=== PATIENT | male | born 1940 | race Caucasian/White ===

== ENCOUNTER 2021-01-23 15:55 | Inpatient (IN) | payer MEDICARE ==
[~2021-01-23] VITALS: Ht 180.3 cm; Wt 98.9 kg
[2021-01-23] VITALS (10 sets, daily range): BP systolic 100–128; BP diastolic 55–94
[2021-01-23] MEDS ORDERED: LACTATED RINGERS 1,000 ML IV ONE ×2 (20:20→21:09)
[2021-01-23] MEDS ORDERED: LACTATED RINGERS 1,000 ML IV SCH (20:30)
[2021-01-23] MEDS ORDERED: ONDANSETRON 4 MG/2 ML (SDV) Z0FRAN IVP PRN (20:30)
--- NOTE | 2021-01-23 21:06 | Tele-ICU Progress Note ---
Progress Note 80M with DM, HTN, neuropathy brought to [facility] ED by ambulance after fall with c/o left wrist pain. Also with increased abd pain and left knee pain after a fall last week. 1 week diarrhea, progressively worse after last [address] Abd with significant diverticulosis thoughout the colon with a short segment of mild bowel wall thickening with pericolonic inflammatory changes within the sigmoid colon suggestive of acute diverticulitis. Had been HD stable and transferred to [place] for admission for abdominal sepsis. En route, became hypotensive prompting upgrade to ICU status. BP 120/68, HR 120 after bolus. Initial lactic 2.8, creat 1.8, agap 15, WBC 14.8 sepsis: secondary to diverticulitis. IV abx initiated, cultues pending. Supportive care. BP responded to IVF but may require pressors overnight. CKD vs BRANDON: Baseline unkonwn, montior renal function and UOP. Avoid hypotension, nephrotoxins. DM: insulin sliding scale. Focused Exam Lactate Level 01/23/21 08:36: Lactic Acid Level 1.92 Height, Weight, BMI Height: '" Weight: lbs. oz. kg; BMI Method: ADAIR HODGES MD Jan 23, 2021 21:06
--- NOTE | 2021-01-23 21:15 | Procedure/Intervention Note ---
Procedures/Interventions Lumen: triple Position: internal jugular (R) Anesthesia: local Volume Anesthetic (ccs): 5 Post Position: sutured, good blood return, position confirmed w/ CXR Patient was initially a transfer to the medical surgical unit from [facility]. EMS called in route to report a blood pressure that had dropped from 90 systolic on their arrival to [facility] down to 87 systolic in route. Tachycardia with a heart rate of 130-140. His bed status was changed to ICU. Patient had a positional 20-gauge IV in the left antecubital fossa. Called ICU by maintenance worker house trailer to start central line. Ultrasound-guided right internal jugular central line placed without difficulty x1 attempt. JUWAN MENDES APRN Jan 23, 2021 9:15 pm
[2021-01-23] MEDS: LACTATED RINGERS 1,000 ML IV SCH (21:30)
--- NOTE | 2021-01-23 21:51 | Diagnostic Imaging Report ---
INDICATION: Central line placement Portable chest at 9:16 PM FINDINGS: Right IJ central line tip projects over the right innominate vein. Heart size and pulmonary vascularity are normal. There is left perihilar atelectasis. IMPRESSION: Left perihilar atelectasis. PICC line tip projects over the right innominate vein. Dictated by: Dictated on workstation # [id number]
[2021-01-23] MEDS: morphine INJ 4 MG/ML 1 ML (VIAL/SYRINGE) IVP PRN (23:38)
[2021-01-23] MEDS: metroNIDAZOLE 500MG/100ML IVPB 100 ML IV SCH (23:42)
[2021-01-23] MEDS: cefTRIAXone 2,000 MG in NS (IVPB) 50 ML IV SCH (23:43)
[2021-01-24] VITALS (51 sets, daily range): BP systolic 91–201; BP diastolic 37–160
[2021-01-24] MEDS: morphine INJ 4 MG/ML 1 ML (VIAL/SYRINGE) IVP PRN ×2 (02:21→21:23)
[2021-01-24] MEDS: inSUlin ASPART (NovoLOG) 1 UNIT/0.01 ML (CHARGE PER UNIT) SC SCH ×5 (02:21→23:26)
[2021-01-24 05:45] LABS: BASOPHILS # (AUTO) 0.1 10^3/uL (0.0-0.1); BASOPHILS % (AUTO) 0 % (0-10); EOSINOPHILS # (AUTO) 0.1 10^3/uL (0.0-0.3); EOSINOPHILS % (AUTO) 0 % (0-10); HEMATOCRIT 38 % (40-54); HEMOGLOBIN 11.9 g/dL (13.3-17.7); LYMPHOCYTES # (AUTO) 1.6 10^3/uL (1.0-4.0); LYMPHOCYTES % (AUTO) 5 % (12-44); MEAN CORPUSCULAR HEMOGLOBIN 26 pg (25-34); MEAN CORPUSCULAR HGB CONC 31 g/dL (32-36); MEAN CORPUSCULAR VOLUME 84 fL (80-99); MEAN PLATELET VOLUME 13.1 fL (9.0-12.2); MONOCYTES # (AUTO) 10.5 10^3/uL (0.0-1.0); MONOCYTES % (AUTO) 35 % (0-12); NEUTROPHILS # (AUTO) 17.5 10^3/uL (1.8-7.8); NEUTROPHILS % (AUTO) 57 % (42-75); PLATELET COUNT 72 10^3/uL (130-400)
[2021-01-24 05:47] LABS: WHITE BLOOD COUNT 30.5 10^3/uL (4.3-11.0)
[2021-01-24 06:06] LABS: ALBUMIN 2.9 GM/DL (3.2-4.5); POTASSIUM 4.3 MMOL/L (3.6-5.0)
[2021-01-24 06:07] LABS: CALCIUM 8.8 MG/DL (8.5-10.1)
[2021-01-24 06:09] LABS: TOTAL PROTEIN 6.5 GM/DL (6.4-8.2)
[2021-01-24 06:10] LABS: BILIRUBIN,TOTAL 0.4 MG/DL (0.1-1.0)
[2021-01-24 06:12] LABS: CREATININE SERUM 2.41 MG/DL (0.60-1.30); PHOSPHORUS 5.9 MG/DL (2.3-4.7)
[2021-01-24 06:15] LABS: MAGNESIUM 1.7 MG/DL (1.6-2.4)
[2021-01-24 06:24] LABS: LYMPHOCYTES % (MANUAL) 3 %; NEUTROPHILS % (MANUAL) 63 %
[2021-01-24 06:25] LABS: ATYPICAL LYMPHOCYTES 1 %; BAND NEUTROPHILS 5 %; MONOCYTES % (MANUAL) 27 %; RBC MORPH NORMAL; REACTIVE LYMPHOCYTES 1 %
[2021-01-24] MEDS: metroNIDAZOLE 500MG/100ML IVPB 100 ML IV SCH ×3 (06:35→21:19)
[2021-01-24] MEDS: LACTATED RINGERS 1,000 ML IV SCH ×3 (06:36→21:19)
[2021-01-24] MEDS: POTASSIUM CL 10MEQ/50ML IVPB 50 ML IV SCH (06:36)
[2021-01-24] MEDS: MAGNESIUM 1 GM/100 ML IVPB 100 ML IV SCH (06:36)
[2021-01-24] MEDS: KCL 20 MEQ TAB (K-DUR) PO SCH (06:36)
--- NOTE | 2021-01-24 07:51 | Consultation - Surgery ---
MED HORN 01/24/21 0751: History of Present Illness History of Present Illness Patient Consulted On(ankush/time) 01/24/21 07:43 Date Seen by Provider: Jan 24, 2021 Time Seen by Provider: 07:09 History of Present Illness Previous HPI from EICU: 80M with DM, HTN, neuropathy brought to [facility] ED by ambulance after fall with c/o left wrist pain. Also with increased abd pain and left knee pain after a fall last week. 1 week diarrhea, progressively worse after last [address] Abd with significant diverticulosis thoughout the colon with a short segment of mild bowel wall thickening with pericolonic inflammatory changes within the sigmoid colon suggestive of acute diverticulitis. Had been HD stable and transferred to [place] for admission for abdominal sepsis. En route, became hypotensive prompting upgrade to ICU status. BP 120/68, HR 120 after bolus. Initial lactic 2.8, creat 1.8, agap 15, WBC 14.8. sepsis: secondary to diverticulitis. IV abx initiated, cultues pending. Supportive care. BP responded to IVF but may require pressors overnight. CKD vs BRANDON: Baseline unkonwn, montior renal function and UOP. Avoid hypotension, nephrotoxins. DM: insulin sliding scale. Today when I visited the pt he was disoriented and in significant pain which complicated the encounter. He states that he fell and injured his arm and wrist and is also experiencing some abdominal pain. He denies any N/V or bloody stools. His abdomen is soft and non-distended and not acutely painful to deep palpation. He does complain constantly of pain in his left elbow and wrist. This is made significantly worse when moving and better with rest. There is no obvious displacement to suggest fx however imagine should be considered to r/o. He did have an episode of hypotension during transport, however nursing confirms that after .5L bolus upon arrival his pressure have remained in the 120 range. His WBC have bumped up to 30.5 raising suspicion for possible abdominal perf. however this is not well supported by his physical exam. He remains NPO for possible surgical intervention. Allergies and Home Medications Allergies Coded Allergies: lisinopril (Verified Allergy, Unknown, 01/24/21) Patient Home Medication List Allopurinol (Allopurinol) 100 Mg Tablet, 100 MG PO DAILY, (Reported) Entered as Reported by: VIDAL HANNA on 01/24/211449 Last Action: Reviewed Aspirin (Aspirin EC) 81 Mg Tablet.dr, 81 MG PO DAILY, (Reported) Entered as Reported by: VIDAL HANNA on 01/24/211449 Last Action: Reviewed Atorvastatin Calcium (Atorvastatin Calcium) 20 Mg Tablet, 20 MG PO DAILY, (Reported) Entered as Reported by: VIDAL HANNA on 01/24/211449 Last Action: Reviewed Carvedilol (Carvedilol) 6.25 Mg Tablet, 3.125 MG PO BID, (Reported) Entered as Reported by: VIDAL HANNA on 01/24/211449 Last Action: Reviewed Cyanocobalamin/Cobamamide (Vitamin B-12 5,000 Mcg Tab Sl) 1 Each Tab.subl, 1 EACH SL DAILY, (Reported) Entered as Reported by: VIDAL HANNA on 01/24/211449 Last Action: Reviewed Dapagliflozin Propanediol (Farxiga) 5 Mg Tablet, 5 MG PO DAILY, (Reported) Entered as Reported by: VIDAL HANNA on 01/24/211449 Last Action: Reviewed Donepezil HCl (Donepezil HCl) 10 Mg Tablet, 10 MG PO BID, (Reported) Entered as Reported by: VIDAL HANNA on 01/24/211449 Last Action: Reviewed Gabapentin (Neurontin) 300 Mg Capsule, 600 MG PO TID, (Reported) Entered as Reported by: VIDAL HANNA on 01/24/211449 Last Action: Reviewed Insulin NPH Hum/Reg Insulin Hm (Relion Novolin 70-30 Vial) 100 Unit/1 Ml Vial, 100 UNITS SC DAILY BEFORE MEAL, (Reported) Entered as Reported by: VIDAL HANNA on 01/24/211449 Last Action: Reviewed Insulin NPH Hum/Reg Insulin Hm (Relion Novolin 70-30 Vial) 100 Unit/1 Ml Vial, 55 UNIT SQ 1800 BEFORE MEAL, (Reported) Entered as Reported by: VIDAL HANNA on 01/24/211449 Last Action: Reviewed Mirabegron (Myrbetriq) 50 Mg Tab.er.24h, 50 MG PO DAILY, (Reported) Entered as Reported by: VIDAL HANNA on 01/24/211449 Last Action: Reviewed Omeprazole (Omeprazole) 20 Mg Capsule.dr, 20 MG PO DAILY, (Reported) Entered as Reported by: VIDAL HANNA on 01/24/211449 Last Action: Reviewed Sertraline HCl (Sertraline HCl) 50 Mg Tablet, 50 MG PO DAILY, (Reported) Entered as Reported by: VIDAL HANNA on 01/24/211449 Last Action: Reviewed Past Srjompp-Ibsrtc-Qgrqlk Hx Patient Social History Smoking Status: Former Smoker Type Used: Cigarettes Family Medical History Significant Family History: Diabetes (dad) Review of Systems-General Constitutional: No chills, No fever; malaise, weakness EENTM: No ear pain, No mouth pain, No throat pain Respiratory: No cough, No hemoptysis, No wheezing Cardiovascular: No chest pain, No edema, No palpitations Gastrointestinal: abdominal pain ( - diffuse and non-specific); No cons tipation, No diarrhea, No dysphagia, No hematemesis, No melena, No nausea, No vomiting Genitourinary: No decreased output, No frequency, No hematuria, No incontinence (cath in place) Musculoskeletal: No back pain; joint pain (left arm and wrist), muscle pain Physical Exam-General Problems Physical Exam Vital Signs Vital Signs - First Documented 01/23/21 01/23/21 20:09 20:15 Temp 37.1 Pulse 128 Resp 11 B/P (MAP) 101/72 (73) Pulse Ox 91 O2 Delivery Nasal Cannula O2 Flow Rate 2.00 Capillary Refill : General Appearance: WD/WN, mild distress Eyes: Bilateral Eye PERRL, Bilateral Eye EOMI HEENT: PERRL/EOMI, pharynx normal Neck: non-tender, full range of motion, supple Respiratory: chest non-tender, lungs clear, normal breath sounds, no respiratory distress, no accessory muscle use Cardiovascular: no edema, no gallop, no murmur, tachycardia Peripheral Pulses: 2+ Carotid (R), 2+ Carotid (L) Gastrointestinal: normal bowel sounds, non tender, soft, no organomegaly, no pulsatile mass Extremities: no pedal edema, no calf tenderness, normal capillary refill, other ( - swelling to left arm and wrist - limited ROM secondary to pain) Neurologic/Psychiatric: emblem drawer in II-XII nml as tested, alert Skin: normal color, warm/dry Lymphatic: no adenopathy (cervical and axillary) Data Review Labs Laboratory Tests 01/23/21 08:36: Lactic Acid Level 1.92, Procalcitonin 7.57H 01/24/21 05:32: White Blood Count 30.5*H, Red Blood Count 4.54, Hemoglobin 11.9L, Hematocrit 38L , Mean Corpuscular Volume 84, Mean Corpuscular Hemoglobin 26, Mean Corpuscular Hemoglobin Concent 31L, Red Cell Distribution Width 14.7H, Platelet Count 72L, Mean Platelet Volume 13.1H, Immature Granulocyte % (Auto) 2, Neutrophils (%) (Au to) 57, Lymphocytes (%) (Auto) 5L, Monocytes (%) (Auto) 35H, Eosinophils (%) (Auto) 0, Basophils (%) (Auto) 0, Neutrophils # (Auto) 17.5H, Lymphocytes # (Auto) 1.6, Monocytes # (Auto) 10.5H, Eosinophils # (Auto) 0.1, Basophils # (Auto) 0.1, Immature Granulocyte # (Auto) 0.7H, Neutrophils % (Manual) 63, Lymphocytes % (Manual) 3, Monocytes % (Manual) 27, Band Neutrophils 5, Atypical Lymphocytes 1, Reactive Lymphocytes 1, Blood Morphology Comment NORMAL, Sodium Level 137, Potassium Level 4.3, Chloride Level 104, Carbon Dioxide Level 16L, Anion Gap 17H, Blood Urea Nitrogen 31H, Creatinine 2.41H, Estimat Glomerular Filtration Rate 26, BUN/Creatinine Ratio 13, Glucose Level 202H, Calcium Level 8.8, Corrected Calcium 9.7, Phosphorus Level 5.9H, Magnesium Level 1.7, Total Bilirubin 0.4, Aspartate Amino Transf (AST/SGOT) 21, Alanine Aminotransferase (ALT/SGPT) 9, Alkaline Phosphatase 65, Total Protein 6.5, Albumin 2.9L Assessment/Plan Assessment/Plan Admission Diagonsis MSK left shoulder, elbow and wrist pain - imaging to R/O fx Abdominal pain - imiaging suggestive if inflamitory Assessment/Plan MSK pain from left shoulder, elbow and wrist secondary to fall. - imaging to R/O fx Abdominal pain w/elevated wbc & paroxysmal hypotension - imaging suggestive of acute diverticulitis Plan: pain control with IV abx Supportive care Imaging of left shoulder, elbow and wrist Review CT of abdomen DELMIS ESQUEDA DO 12/11836: History of Present Illness History of Present Illness Time Seen by Provider: 11:55 History of Present Illness Surgery asked to consult regarding diverticulitis, sepsis and abdominal pain. When I spoke to pt this afternoon he was able to answer most questions, but tended to mumble and may be hard of hearing. His biggest complaint was of left wrist pain. He did also complain of some abdominal pain, maybe 6 out of 10...didn't think it was worse last night. When asked he thinks his last colonoscopy was more than 20 yrs ago. Allergies and Home Medications Allergies Coded Allergies: lisinopril (Verified Allergy, Unknown, 01/24/21) Patient Home Medication List Home Medication List Reviewed: Yes Allopurinol (Allopurinol) 100 Mg Tablet, 100 MG PO DAILY, (Reported) Entered as Reported by: VIDAL HANNA on 01/24/211449 Last Action: Reviewed Aspirin (Aspirin EC) 81 Mg Tablet.dr, 81 MG PO DAILY, (Reported) Entered as Reported by: VIDAL HANNA on 01/24/211449 Last Action: Reviewed Atorvastatin Calcium (Atorvastatin Calcium) 20 Mg Tablet, 20 MG PO DAILY, (Reported) Entered as Reported by: VIDAL HANNA on 01/24/211449 Last Action: Reviewed Carvedilol (Carvedilol) 6.25 Mg Tablet, 3.125 MG PO BID, (Reported) Entered as Reported by: VIDAL HANAN on 01/24/211449 Last Action: Reviewed Cyanocobalamin/Cobamamide (Vitamin B-12 5,000 Mcg Tab Sl) 1 Each Tab.subl, 1 EACH SL DAILY, (Reported) Entered as Reported by: VIDAL HANNA on 01/24/211449 Last Action: Reviewed Dapagliflozin Propanediol (Farxiga) 5 Mg Tablet, 5 MG PO DAILY, (Reported) Entered as Reported by: VIDAL HANNA on 01/24/211449 Last Action: Reviewed Donepezil HCl (Donepezil HCl) 10 Mg Tablet, 10 MG PO BID, (Reported) Entered as Reported by: VIDAL HANNA on 01/24/211449 Last Action: Reviewed Gabapentin (Neurontin) 300 Mg Capsule, 600 MG PO TID, (Reported) Entered as Reported by: VIDAL HANNA on 01/24/211449 Last Action: Reviewed Insulin NPH Hum/Reg Insulin Hm (Relion Novolin 70-30 Vial) 100 Unit/1 Ml Vial, 100 UNITS SC DAILY BEFORE MEAL, (Reported) Entered as Reported by: VIDAL HANNA on 01/24/211449 Last Action: Reviewed Insulin NPH Hum/Reg Insulin Hm (Relion Novolin 70-30 Vial) 100 Unit/1 Ml Vial, 55 UNIT SQ 1800 BEFORE MEAL, (Reported) Entered as Reported by: VIDAL HANNA on 01/24/211449 Last Action: Reviewed Mirabegron (Myrbetriq) 50 Mg Tab.er.24h, 50 MG PO DAILY, (Reported) Entered as Reported by: VIDAL HANNA on 01/24/211449 Last Action: Reviewed Omeprazole (Omeprazole) 20 Mg Capsule.dr, 20 MG PO DAILY, (Reported) Entered as Reported by: VIDAL HANNA on 01/24/211449 Last Action: Reviewed Sertraline HCl (Sertraline HCl) 50 Mg Tablet, 50 MG PO DAILY, (Reported) Entered as Reported by: VIDAL HANNA on 01/24/211449 Last Action: Reviewed Past Ssxlxbb-Wudbis-Vbeydr Hx Patient Social History Smoking Status: Former Smoker Type Used: Cigarettes Alcohol Use?: No Surgeries History of Surgeries: Yes Surgeries: Gallbladder, Orthopedic (Left hip replacement) Respiratory History of Respiratory Disorde: Yes Respiratory Disorders: COPD Cardiovascular History of Cardiac Disorders: Yes Cardiac Disorders: Hypertension Genitourinary History of Genitourinary Disor: Yes Genitourinary Disorders: Renal Failure Gastrointestinal History of Gastrointestinal Di: Yes Gastrointestinal Disorders: Diverticulosis Musculoskeletal History of Musculoskeletal Dis: Yes Musculoskeletal Disorders: Arthritis Endocrine History of Endocrine Disorders: Yes Endocrine Disorders: Diabetes, Non-Insulin dep Cancer History of Cancer: No Family Medical History Significant Family History: Diabetes (dad) Review of Systems-General Constitutional: No chills, No fever; malaise, weakness EENTM: No ear pain, No mouth pain, No throat pain Respiratory: No cough, No hemoptysis, No wheezing Cardiovascular: No chest pain, No edema, No palpitations Gastrointestinal: abdominal pain ( - diffuse and non-specific); No constipation, No diarrhea, No dysphagia, No hematemesis, No melena, No nausea, No vomiting Genitourinary: No decreased output, No frequency, No hematuria, No incontinence (cath in place) Musculoskeletal: back pain, joint pain (left arm and wrist), muscle pain Physical Exam-General Problems Physical Exam General Appearance: WD/WN, mild distress Eyes: Bilateral Eye PERRL, Bilateral Eye EOMI HEENT: pharynx normal; No scleral icterus (R), No scleral icterus (L) Neck: non-tender, supple Respiratory: lungs clear, normal breath sounds, no respiratory distress, no accessory muscle use Cardiovascular: no edema, no murmur, tachycardia Gastrointestinal: soft, no organomegaly, no pulsatile mass, tenderness (diffusely, but possibly more suprapubic) Extremities: no pedal edema, no calf tenderness, other ( - swelling to left arm and wrist - limited ROM secondary to pain) Neurologic/Psychiatric: emblem drawer in II-XII nml as tested, alert Skin: normal color, warm/dry Lymphatic: no adenopathy (cervical and axillary) Assessment/Plan Assessment/Plan Assessment/Plan Diverticulitis Sepsis Chronic Kidney Disease HTN, DM MSK pain from left shoulder, elbow and wrist secondary to fall. Adominal pain w/elevated wbc & paroxysmal hypotension Plan: pain control, IV abx, check for C. Diff, monitor labs, monitor abdominal exam, Supportive care I reviewed the CT of abdomen and can see the chronic kidney disease, I also see the area of thickening which is basically suprapubic (where he has most pain) and the extensive diverticulosis, but I am not convinced there is that much inflammation and don't think this is acute diverticulitis. He does have an elevated WBC, in fact it went to 30 this am but was down to 19 around 4pm. I discussed his case with Dr. Mcgrath as well. I think the best thing is too watch and see how he does. No surgical indications at this time. Supervisory-Addendum Brief Verification & Attestation Participated in pt care: history, MDM, physical Personally performed: exam, history, MDM, supervision of care Care discussed with: Medical Student Procedures: n/a Verification and Attestation of Medical Student E/M Service A medical student performed and documented this service. I then reviewed and verified all information documented by the medical student and made mo difications to such information, when appropriate. I personally performed a physical exam, medical decision making and then discussed any differences between the notes and made revisions as necessary to create one note. Delmis Esqueda , 01/24/21 , 18:58 MED HORN Jan 24, 2021 07:51 DELMIS ESQUEDA DO Jan 24, 2021 18:37
[2021-01-24] MEDS: ENOXAPARIN 40 MG/0.4 ML (LOVENOX) SYR SC SCH (08:44)
--- NOTE | 2021-01-24 09:20 | Diagnostic Imaging Report ---
INDICATION: Left shoulder and arm pain post fall TECHNIQUE: 2 views of the left humerus CORRELATION STUDY: None FINDINGS: The humerus has an unremarkable appearance. The visualized portions of the shoulder and elbow are unremarkable. Soft tissues are unremarkable. IV catheter tubing at the antecubital region. IMPRESSION: 1. Negative for acute bony abnormality of the humerus. Dictated by: Dictated on workstation # [id number]
--- NOTE | 2021-01-24 09:23 | Diagnostic Imaging Report ---
INDICATION: Left shoulder and arm pain post fall TECHNIQUE: 2 views of the left shoulder CORRELATION STUDY: None FINDINGS: The glenohumeral and acromioclavicular alignment are maintained. Mild hypertrophic spurring at the acromioclavicular joint. There is no evidence for acute fracture or dislocation. The visualized soft tissues are unremarkable. IMPRESSION: 1. Negative for acute bony abnormality about the shoulder. Dictated by: Dictated on workstation # [id number]
--- NOTE | 2021-01-24 09:55 | Tele-ICU Progress Note ---
Subjective Date Seen by a Provider: Jan 24, 2021 Time Seen by a Provider: 09:05 Subjective/Events-last exam This virtual visit was conducted using real time audio/video. Thank you for asking us to see this patient for diverticulitis, sepsis and confusion. ?? Underlying dementia. Recent events: NPO for possible surgical intervention. PE: VSS. O2 sat 95% on 2 LPM NC. HEENT: No obvious masses, adenopathy or JVD. Chest: clear to auscultation. CV: RRR S1 S2 No murmur or added sounds. Abd: Non-tender. Bowel sounds Y. : Unremarkable. Fields Y. VIDEO RENTAL CLERK/psychiatric: Grossly intact. No obvious focal findings. Extremities: No edema. Capillary refill < 3 seconds. Skin: unremarkable. Results: Elevated WCC 30.5, BUN 31, Creat. 2.41. Decreased HB 11.9, Alb 2.9. CXR: Unremarkable. Available chart/ vitals / labs / images reviewed. Video assessment done using teleICU camera, rest of exam as per RN. A/P: Respiratory insufficiency: Continue present management with 2 LPM NC Monitor for increasing oxygenation needs and/or need for intubation. Critical Care: critically ill patient. Cont. suppoertive care, flagyl, Rocephin, Joaquín., SSI. Awaiting surgical opinion. Cont. isolation for diarrhea. C. Dif pending. Discussed with YUSEF Cooley. Asked RN to reach out to eICU if any questions or concerns later. Time spent with patient/coordination of care with other health professionals (mins): 15 Sepsis Event Evaluation Height, Weight, BMI Height: '" Weight: lbs. oz. kg; 31.37 BMI Method: Focused Exam Lactate Level 01/23/21 08:36: Lactic Acid Level 1.92 Exam Exam Patient acknowledged, consented, and participated in this virtual visit which was conducted using real time audio/video Vital Signs Date Time Temp Pulse Resp B/P (MAP) Pulse Ox O2 Delivery O2 Flow Rate FiO2 01/24/21 08:30 18 117/64 (90) Nasal Cannula 2.00 01/24/21 08:15 105 18 136/69 (77) Nasal Cannula 2.00 01/24/21 08:00 97 Nasal Cannula 2.00 01/24/21 08:00 106 18 120/72 (81) Nasal Cannula 2.00 01/24/21 07:46 36.8 01/24/21 07:45 107 18 143/95 (102) Nasal Cannula 2.00 01/24/21 07:30 106 17 112/72 (80) Nasal Cannula 2.00 01/24/21 07:15 20 145/72 (100) Nasal Cannula 2.00 01/24/21 07:00 107 01/24/21 07:00 105 18 148/69 (83) Nasal Cannula 2.00 01/24/21 06:00 105 18 141/60 (87) 94 Nasal Cannula 2.00 01/24/21 05:00 108 18 139/58 (85) 93 Nasal Cannula 2.00 01/24/21 04:00 101 19 137/61 (86) 96 Nasal Cannula 2.00 01/24/21 04:00 36.0 01/24/21 04:00 97 Nasal Cannula 2.00 01/24/21 03:00 99 19 129/109 (116) 96 Nasal Cannula 2.00 01/24/21 02:00 102 24 123/108 (113) 98 Nasal Cannula 2.00 01/24/21 01:00 104 17 129/79 (96) 98 Nasal Cannula 2.00 01/24/21 01:00 104 01/24/21 00:00 36.8 01/24/21 00:00 105 17 122/60 (80) 97 Nasal Cannula 2.00 01/24/21 00:00 97 Nasal Cannula 2.00 01/23/21 23:00 105 18 122/94 (103) 97 Nasal Cannula 2.00 01/23/21 22:22 131 01/23/21 22:00 112 20 128/68 (82) 97 Nasal Cannula 2.00 01/23/21 21:45 115 21 111/69 (79) 97 Nasal Cannula 2.00 01/23/21 21:30 116 21 123/72 (81) 97 Nasal Cannula 2.00 01/23/21 21:15 112 15 108/70 (92) 99 Nasal Cannula 2.00 01/23/21 21:00 114 22 120/68 (92) 100 Nasal Cannula 2.00 01/23/21 20:45 120 20 123/65 (80) 98 Nasal Cannula 2.00 01/23/21 20:30 126 15 102/55 (71) 91 Nasal Cannula 2.00 01/23/21 20:15 131 11 100/61 (70) 87 Nasal Cannula 2.00 01/23/21 20:15 Nasal Cannula 2.00 01/23/21 20:09 37.1 128 101/72 (73) 91 Nasal Cannula 2.00 I & O 01/24/21 07:00 Intake Total 1150 ml Output Total 500 ml Balance 650 ml Height & Weight Height: '" Weight: lbs. oz. kg; 31.37 BMI Method: General Appearance: Moderate Distress, Thin Peripheral Pulses: 2+ Carotid (R), 2+ Carotid (L); 1+ Dorsalis Pedis (R), 1+ Left Dors-Pedis (L) (See free text) Gastrointestinal: normal bowel sounds, non tender, soft, no organomegaly, no pulsatile mass Results Lab Laboratory Tests 01/24/21 05:32 Assessment/Plan Assessment/Plan See free text Critical Care: Critically Ill Patient MIRELLA BHATIA MD Jan 24, 2021 09:55
--- NOTE | 2021-01-24 14:27 | History & Physical-Hospitalist ---
History of Present Illness HPI/Chief Complaint Roger Segura is an 80 year old male with PMH HTN, T2DM, obesity, who presented to the [place] ER after a fall at home with wrist pain. He also reported abdominal pain. He is a poor historian but is able to answer some questions. He denies pain. He deneis fever. He appears uncomfortable. He was found to be septic with possible acute diverticulitis and was transferred to [facility]. He had issues with hypotension while en route. Source: patient Exam Limitations: clinical condition Date Seen 01/24/21 Time Seen by a Provider: 09:25 Attending Physician Samantha Lira MD PCP Primitivo Clifton DO Referring Physician Date of Admission Jan 23, 2021 at 20:03 Home Medications & Allergies Home Medications Reviewed patient Home Medication Reconciliation performed by pharmacy medication reconciliations holter technician and/or nursing. Patients Allergies have been reviewed. Allergies Allergies Coded Allergies lisinopril (Verified Allergy, Unknown, 01/24/21) Past Uxgaxfh-Eokeih-Yqukgo Hx Patient Social History Smoking Status: Former Smoker Past Medical History Hypertension Diabetes, Insulin dep Family Medical History Diabetes (dad) Review of Systems Constitutional: weakness EENTM: no symptoms reported Respiratory: no symptoms reported Cardiovascular: no symptoms reported Gastrointestinal: abdominal pain, diarrhea Genitourinary: no symptoms reported Musculoskeletal: no symptoms reported Skin: no symptoms reported Psychiatric/Neurological: No Symptoms Reported Physical Exam Physical Exam Vital Signs Vital Signs - First Documented 01/23/21 01/23/21 20:09 20:15 Temp 37.1 Pulse 128 Resp 11 B/P (MAP) 101/72 (73) Pulse Ox 91 O2 Delivery Nasal Cannula O2 Flow Rate 2.00 Capillary Refill : Height, Weight, BMI Height: '" Weight: lbs. oz. kg; 31.37 BMI Method: General Appearance: Mild Distress (uncomfortable), Obese HEENT: PERRL/EOMI, Pharynx Normal Neck: Normal Inspection, Supple Respiratory: Lungs Clear, Normal Breath Sounds, No Respiratory Distress Cardiovascular: No Edema, No Murmur, Tachycardia Gastrointestinal: Normal Bowel Sounds, Soft; No Distended; Tenderness (diffusely) Extremity: Normal Inspection, Non Tender, No Pedal Edema Neurologic/Psychiatric: Alert, Disoriented, Motor Weakness Skin: Normal Color, Warm/Dry Results Results/Procedures Labs Laboratory Tests 01/24/21 05:32 Patient resulted labs reviewed. Imaging: Reviewed Imaging Films, Reviewed Imaging Report Assessment/Plan Admission Diagnosis Septic shock Admission Status: Inpatient Order (span 2 midnights) Reason for Inpatient Admission: IV antibiotics and fluids Assessment and Plan Septic shock Acute diverticulitis UTI Acute kidney injury superimposed on chronic kidney disease Thrombocytopenia Delirium Presented with leukocytosis and tachycardia UA consistent with UTI CT Abd reportedly showed acute diverticulitis Started on Zosyn Transitioned to Rocephin and Flagyl Worsening leukocytosis and renal failure today C diff negative Continue IV fluids Continue IV antibiotics Contact [place] for culture results Repeat labs this afternoon Add on coag studies Consider repeat imaging TeleICU following Surgery following T2DM Sliding scale insulin HTN HLD GERD Hold home meds DVT prophylaxis: Lovenox Critical Care Critically Ill Patient Diagnosis/Problems Diagnosis/Problems (1) Septic shock Status: Acute (2) Acute diverticulitis Status: Acute (3) UTI (urinary tract infection) Status: Acute (4) Acute kidney injury superimposed on chronic kidney disease Status: Acute (5) Thrombocytopenia Status: Acute (6) Delirium Status: Acute (7) HTN (hypertension) Status: Chronic (8) HLD (hyperlipidemia) Status: Chronic (9) GERD (gastroesophageal reflux disease) Status: Chronic (10) T2DM (type 2 diabetes mellitus) Status: Chronic Qualifiers: Diabetes mellitus 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
[2021-01-24] MEDS ORDERED: DONE10TA41 PO (14:50)
[2021-01-24] MEDS ORDERED: SERT-413 PO (14:50)
[2021-01-24] MEDS ORDERED: HUM100VI13 SC (14:50)
[2021-01-24] MEDS ORDERED: HUM100VI13 SQ (14:50)
[2021-01-24] MEDS ORDERED: OMEP20CA18 PO (14:50)
[2021-01-24] MEDS ORDERED: CARV6.252 PO (14:50)
[2021-01-24] MEDS ORDERED: MIRA50TA PO (14:50)
[2021-01-24] MEDS ORDERED: ALLO100T PO (14:50)
[2021-01-24] MEDS ORDERED: ATOR20TA66 PO (14:50)
[2021-01-24] MEDS ORDERED: GABA300C PO (14:50)
[2021-01-24] MEDS ORDERED: CYAN1TAB64 SL (14:50)
[2021-01-24] MEDS ORDERED: ASPI-1238 PO (14:50)
[2021-01-24] MEDS ORDERED: DAPA5TAB PO (14:50)
[2021-01-24 16:36] LABS: FIBRIN DEGRADATION PRODUCTS 2.74 UG/ML (0.00-0.49); INR 1.6 (0.8-1.4); PROTHROMBIN TIME PATIENT 19.8 SEC (12.2-14.7)
[2021-01-24 16:49] LABS: ABSOLUTE RETIC # 86 10e9/uL (24-90); BASOPHILS % (AUTO) 0 % (0-10); EOSINOPHILS # (AUTO) 0.1 10^3/uL (0.0-0.3); EOSINOPHILS % (AUTO) 1 % (0-10); HEMATOCRIT 46 % (40-54); HEMOGLOBIN 14.6 g/dL (13.3-17.7); LYMPHOCYTES % (AUTO) 5 % (12-44); MEAN CORPUSCULAR HEMOGLOBIN 27 pg (25-34); MEAN CORPUSCULAR HGB CONC 32 g/dL (32-36); MEAN CORPUSCULAR VOLUME 85 fL (80-99); MONOCYTES # (AUTO) 5.4 10^3/uL (0.0-1.0); MONOCYTES % (AUTO) 28 % (0-12); NEUTROPHILS # (AUTO) 12.4 10^3/uL (1.8-7.8); NEUTROPHILS % (AUTO) 64 % (42-75); PLATELET COUNT 45 10^3/uL (130-400); RETICULOCYTE % 1.56 % (0.50-2.40); WHITE BLOOD COUNT 19.3 10^3/uL (4.3-11.0)
[2021-01-24 16:57] LABS: CALCIUM 8.7 MG/DL (8.5-10.1); CREATININE SERUM 2.28 MG/DL (0.60-1.30); POTASSIUM 3.9 MMOL/L (3.6-5.0)
[2021-01-24 18:18] LABS: EOSINOPHILS % (MANUAL) 1 %; LYMPHOCYTES % (MANUAL) 5 %; MONOCYTES % (MANUAL) 30 %; NEUTROPHILS % (MANUAL) 64 %; RBC MORPH NORMAL
[2021-01-24] MEDS: cefTRIAXone 2,000 MG in NS (IVPB) 50 ML IV SCH (21:18)
[2021-01-24 22:35] LABS: BILIRUBIN,URINE NEGATIVE (NEGATIVE); CLARITY,URINE SL CLOUDY; COLOR,URINE YELLOW; GLUCOSE, URINE (UA) TRACE (NEGATIVE); KETONES,URINE 1+ (NEGATIVE); LEUKOCYTE ESTERASE ,URINE 1+ (NEGATIVE); NITRITE,URINE NEGATIVE (NEGATIVE); PH,URINE 5.5 (5-9); PROTEIN,URINE TRACE (NEGATIVE)
[2021-01-24 22:48] LABS: AMORPHOUS SEDIMENT,UR FEW AMOR URATES /LPF; BACTERIA,URINE FEW /HPF; GRANULAR CASTS,URINE 0-2 /LPF; SQUAMOUS EPITHELIAL CELL,UR 0-2 /HPF
[2021-01-25] VITALS (14 sets, daily range): BP systolic 105–153; BP diastolic 48–96
[2021-01-25] MEDS: morphine INJ 4 MG/ML 1 ML (VIAL/SYRINGE) IVP PRN ×2 (03:28→23:07)
[2021-01-25 05:33] LABS: BASOPHILS % (AUTO) 0 % (0-10); HEMATOCRIT 34 % (40-54)
[2021-01-25 05:35] LABS: EOSINOPHILS % (AUTO) 0 % (0-10); HEMOGLOBIN 10.8 g/dL (13.3-17.7); LYMPHOCYTES # (AUTO) 1.3 10^3/uL (1.0-4.0); LYMPHOCYTES % (AUTO) 7 % (12-44); MEAN CORPUSCULAR HEMOGLOBIN 27 pg (25-34); MEAN CORPUSCULAR HGB CONC 32 g/dL (32-36); MEAN CORPUSCULAR VOLUME 84 fL (80-99); MEAN PLATELET VOLUME 11.9 fL (9.0-12.2); MONOCYTES # (AUTO) 5.7 10^3/uL (0.0-1.0); MONOCYTES % (AUTO) 31 % (0-12); NEUTROPHILS # (AUTO) 10.9 10^3/uL (1.8-7.8); NEUTROPHILS % (AUTO) 59 % (42-75); PLATELET COUNT 65 10^3/uL (130-400); WHITE BLOOD COUNT 18.3 10^3/uL (4.3-11.0)
[2021-01-25 05:53] LABS: ALBUMIN 2.7 GM/DL (3.2-4.5); POTASSIUM 3.8 MMOL/L (3.6-5.0)
[2021-01-25 05:54] LABS: CALCIUM 8.8 MG/DL (8.5-10.1)
[2021-01-25 05:57] LABS: BILIRUBIN,TOTAL 0.4 MG/DL (0.1-1.0)
[2021-01-25 05:59] LABS: CREATININE SERUM 2.16 MG/DL (0.60-1.30); PHOSPHORUS 3.4 MG/DL (2.3-4.7)
[2021-01-25 06:02] LABS: MAGNESIUM 1.7 MG/DL (1.6-2.4)
[2021-01-25] MEDS: MAGNESIUM 1 GM/100 ML IVPB 100 ML IV SCH (06:12)
[2021-01-25] MEDS: KCL 20 MEQ TAB (K-DUR) PO SCH (06:12)
[2021-01-25] MEDS: POTASSIUM CL 10MEQ/50ML IVPB 50 ML IV SCH (06:12)
[2021-01-25] MEDS: metroNIDAZOLE 500MG/100ML IVPB 100 ML IV SCH ×3 (06:42→21:05)
[2021-01-25] MEDS: LACTATED RINGERS 1,000 ML IV SCH ×3 (06:42→21:05)
[2021-01-25] MEDS: inSUlin ASPART (NovoLOG) 1 UNIT/0.01 ML (CHARGE PER UNIT) SC SCH ×3 (06:42→18:28)
--- NOTE | 2021-01-25 08:05 | Progress Note - Hospitalist ---
PEYTON ALBERTO 01/25/21 0805: Subjective HPI/CC On Admission Date Seen by Provider: Jan 25, 2021 Time Seen by Provider: 07:45 Roger Segura is an 80 year old male with PMH HTN, T2DM, obesity, who presented to the [place] ER after a fall at home with wrist pain. He also reported abdominal pain. He is a poor historian but is able to answer some questions. He denies pain. He deneis fever. He appears uncomfortable. He was found to be septic with possible acute diverticulitis and was transferred to [facility]. He had issues with hypotension while en route. Subjective/Events-last exam Roger Segura is an 80 year old male with PMH HTN, T2DM, obesity, who presented to the [place] ER after a fall at home with wrist pain. He was found to be septic with possible acute diverticulitis and was transferred to [facility], where he continues today. PT today was mildly uncomfortable in bed today. He complained of a sore throat. Abdominal pain was reported as 8/10. He denies any complaints with bowel movements. The patient stated he was in the [facility] today. Review of Systems General: No Chills, No Night Sweats HEENT: No Head Aches, No Visual Changes Pulmonary: No Dyspnea, No Cough Cardiovascular: No: Chest Pain, Palpitations Gastrointestinal: No: Nausea, Vomiting Genitourinary: No Dysuria, No Frequency Focused Exam Lactate Level 01/23/21 08:36: Lactic Acid Level 1.92 01/24/21 17:05: Lactic Acid Level 1.29 Objective Exam Vital Signs Vital Signs Date Time Temp Pulse Resp B/P (MAP) Pulse Ox O2 Delivery O2 Flow Rate FiO2 01/25/21 12:06 36.5 104 22 125/56 (79) 94 Nasal Cannula 2.00 Capillary Refill : Respiratory: Chest Non Tender, Lungs Clear, Normal Breath Sounds, No Accessory Muscle Use, No Respiratory Distress Cardiovascular: Regular Rate, Rhythm, No Murmur Gastrointestinal: Normal Bowel Sounds, No Organomegaly, No Pulsatile Mass, Tenderness (mild tenderness) Neurologic/Psychiatric: Disoriented (unable to state his location ) Skin: Normal Color, Warm/Dry Results/Procedures Lab Laboratory Tests 01/24/21 16:03 12/2/21 05:23 Patient resulted labs reviewed. Imaging: Reviewed Imaging Films, Reviewed Imaging Report Assessment/Plan Assessment and Plan Assess & Plan/Chief Complaint Septic shock Acute diverticulitis UTI Acute kidney injury superimposed on chronic kidney disease Thrombocytopenia Delirium Septic shock Acute diverticulitis UTI Continue IV fluids, IV antibiotics. Repeat CT scan today to monitor diverticulitis. NADIA LIRA MD 01/25/21 1809: Subjective HPI/CC On Admission Time Seen by Provider: 09:40 Objective Exam General Appearance: No Apparent Distress, Obese Respiratory: Lungs Clear, Normal Breath Sounds, No Respiratory Distress Cardiovascular: No Murmur, Tachycardia Gastrointestinal: Normal Bowel Sounds, Soft; No Distended, No Guarding; Tenderness (diffusely) Extremity: Normal Inspection, Non Tender, Pedal Edema Neurologic/Psychiatric: Alert, Disoriented (unable to state his location ), Motor Weakness Skin: Normal Color, Warm/Dry Results/Procedures Imaging: Reviewed Imaging Report Assessment/Plan Assessment and Plan Assess & Plan/Chief Complaint Admitted with septic shock and colitis. Shock resolved. BRANDON on CKD improving. Repeat CT Abdomen with ongoing abdominal pain. Continue IV antibiotics and fluids. Diagnosis/Problems Diagnosis/Problems (1) Septic shock Status: Resolved Resolution Date/Time: 01/25/21 @ 18:12 (2) Acute diverticulitis Status: Acute (3) UTI (urinary tract infection) Status: Acute (4) Acute kidney injury superimposed on chronic kidney disease Status: Acute Supervisory-Addendum Brief Verification & Attestation Participated in pt care: history, MDM, physical Personally performed: exam, history, MDM, supervision of care Care discussed with: Medical Student Procedures: n/a Results interpretation: Verified all documentation A medical student performed and documented this service in my presence. I reviewed and verified all information documented by the medical student and made modifications to such information, when appropriate. I personally performed the physical exam and medical decision making. PEYTON ALBERTO Jan 25, 2021 08:05 NADIA LIRA MD Jan 25, 2021 18:09
[2021-01-25] MEDS: ENOXAPARIN 40 MG/0.4 ML (LOVENOX) SYR SC SCH (09:01)
--- NOTE | 2021-01-25 09:03 | Progress Note - Surgery ---
FIORDALIZALORIMED OLEARY 01/25/21 0903: Subjective Date Seen by a Provider: Jan 25, 2021 Time Seen by a Provider: 08:19 Subjective/Events-last exam Today when I visited the pt he was resting comfortably in bed. He was complaining of pain in his leg which was hanging off the bed a little, I helped to readjust his leg which improved his discomfort. He still complains of pain in his shoulder and left hand, but not as bad as it was yesterday. He has no pain from his abdomen with deep palpation. He was requesting a drink, he is still NPO for concerns of diverticulitis. C-diff negative Review of Systems General: No Chills, No Night Sweats, No Fatigue, No Malaise HEENT: No Head Aches, No Visual Changes, No Dysphasia, No Sore Throat Pulmonary: No Dyspnea, No Cough, No Pleuritic Chest Pain Cardiovascular: No: Chest Pain, Palpitations, Edema, Lt Headedness Gastrointestinal: No: Nausea, Vomiting, Abdominal Pain, Diarrhea, Constipation, Melena, Hematochezia Genitourinary: No Dysuria, No Frequency, No Incontinence, No Hematuria Musculoskeletal: shoulder pain, arm pain, hand pain, leg pain; No: neck pain, back pain Neurological: No: Weakness, Numbness, Confusion, Seizures Focused Exam Lactate Level 01/23/21 08:36: Lactic Acid Level 1.92 01/24/21 17:05: Lactic Acid Level 1.29 Objective Exam Vital Signs Date Time Temp Pulse Resp B/P (MAP) Pulse Ox O2 Delivery O2 Flow Rate FiO2 01/25/21 08:00 37.3 01/25/21 06:00 112 17 124/71 (88) 91 Nasal Cannula 2.00 01/25/21 05:00 112 13 132/60 (84) 94 Nasal Cannula 2.00 01/25/21 04:00 97 Room Air 01/25/21 04:00 115 13 149/67 (94) 95 Nasal Cannula 2.00 01/25/21 03:00 113 20 133/92 (106) 91 Nasal Cannula 2.00 01/25/21 02:00 114 20 117/91 (100) 95 Nasal Cannula 2.00 01/25/21 01:00 115 01/25/21 01:00 114 22 112/48 (69) 91 Nasal Cannula 2.00 01/25/21 00:00 97 Room Air 01/25/21 00:00 113 22 135/64 (87) 94 Nasal Cannula 2.00 01/24/21 23:26 Nasal Cannula 2.00 01/24/21 23:00 112 23 126/68 (87) 93 Nasal Cannula 2.00 01/24/21 22:00 112 13 142/61 (88) 95 Nasal Cannula 2.00 01/24/21 21:00 114 10 130/57 (81) 93 Nasal Cannula 2.00 01/24/21 20:00 97 Room Air 01/24/21 20:00 114 16 133/65 (87) 93 Nasal Cannula 2.00 01/24/21 19:47 37.3 01/24/21 19:00 112 01/24/21 19:00 113 10 147/69 (95) 94 Nasal Cannula 2.00 01/24/21 18:00 113 9 129/79 (84) 93 Nasal Cannula 2.00 01/24/21 17:30 201/160 (174) 01/24/21 17:15 109 7 144/78 (114) 98 Nasal Cannula 2.00 01/24/21 17:00 154/60 (92) 93 Nasal Cannula 2.00 01/24/21 16:45 147/69 (89) 95 Nasal Cannula 2.00 01/24/21 16:30 134/81 (90) 95 Nasal Cannula 2.00 01/24/21 16:15 105 141/60 (81) 94 Nasal Cannula 2.00 01/24/21 16:00 97 Nasal Cannula 2.00 01/24/21 16:00 36.7 01/24/21 16:00 104 94/57 (69) 95 Nasal Cannula 2.00 01/24/21 15:15 103 19 152/68 (123) 93 Nasal Cannula 2.00 01/24/21 15:00 104 10 145/67 (79) 91 Nasal Cannula 2.00 01/24/21 14:45 102 13 124/76 (102) 96 Nasal Cannula 2.00 01/24/21 14:30 105 6 140/74 (99) 99 Nasal Cannula 2.00 01/24/21 14:15 101 20 124/60 (82) 95 Nasal Cannula 2.00 01/24/21 14:00 105 17 94 Nasal Cannula 2.00 01/24/21 13:45 106 17 136/65 (93) 99 Nasal Cannula 2.00 01/24/21 13:30 108 18 128/60 (63) 88 Nasal Cannula 2.00 01/24/21 13:15 105 19 131/64 (71) 97 Nasal Cannula 2.00 01/24/21 13:15 105 19 131/64 (71) 97 01/24/21 13:00 106 18 112/75 (94) 97 Nasal Cannula 2.00 01/24/21 13:00 106 18 112/75 (94) 97 01/24/21 13:00 105 01/24/21 12:45 105 15 100/81 (91) 98 Nasal Cannula 2.00 01/24/21 12:30 105 17 99 Nasal Cannula 2.00 01/24/21 12:15 101 18 91/76 (81) 96 Nasal Cannula 2.00 01/24/21 12:00 104 22 133/65 (86) 100 01/24/21 12:00 36.6 01/24/21 12:00 97 Nasal Cannula 2.00 01/24/21 11:45 105 18 131/72 (99) 100 Nasal Cannula 2.00 01/24/21 11:30 101 129/64 (94) 97 Nasal Cannula 2.00 01/24/21 11:15 102 135/49 (65) 92 Nasal Cannula 2.00 01/24/21 11:00 99 17 128/63 (72) Nasal Cannula 2.00 01/24/21 10:45 112/96 (107) 01/24/21 10:30 103 18 132/64 (103) Nasal Cannula 2.00 01/24/21 10:15 102 17 131/95 (103) Nasal Cannula 2.00 01/24/21 10:00 102 13 129/53 (80) Nasal Cannula 2.00 01/24/21 09:45 99 8 116/77 (91) Nasal Cannula 2.00 01/24/21 09:30 98 28 113/37 (52) Nasal Cannula 2.00 01/24/21 09:15 99 9 130/61 (89) Nasal Cannula 2.00 01/24/21 09:00 102 14 139/95 (106) Nasal Cannula 2.00 I & O 01/25/21 07:00 Intake Total 1100 ml Output Total 1475 ml Balance -375 ml Capillary Refill : General Appearance: No Apparent Distress, WD/WN HEENT: PERRL/EOMI, Pharynx Normal Neck: Full Range of Motion, Non Tender, Supple Respiratory: Chest Non Tender, Lungs Clear, Normal Breath Sounds, No Accessory Muscle Use, No Respiratory Distress Cardiovascular: No Edema, No Murmur, Tachycardia Peripheral Pulses: 2+ Carotid (R), 2+ Carotid (L); 1+ Dorsalis Pedis (R), 1+ Left Dors-Pedis (L) (See free text) Gastrointestinal: soft, no organomegaly, no pulsatile mass, tenderness Extremity: Normal Inspection, Non Tender, No Pedal Edema Neurologic/Psychiatric: Alert, Disoriented (possible mild dementia) Skin: Normal Color, Warm/Dry Lymphatic: No Adenopathy (cervical and axillary) Results Lab Laboratory Tests 01/24/21 11:23: Glucometer 175H 01/24/21 16:03: White Blood Count 19.3H, Red Blood Count 5.48, Hemoglobin 14.6#, Hematocrit 46, Mean Corpuscular Volume 85, Mean Corpuscular Hemoglobin 27, Mean Corpuscular Hemoglobin Concent 32, Red Cell Distribution Width 14.8H, Platelet Count 45L, Mean Platelet Volume , Immature Granulocyte % (Auto) 2, Neutrophils (%) (Auto) 6 4, Lymphocytes (%) (Auto) 5L, Monocytes (%) (Auto) 28H, Eosinophils (%) (Auto) 1, Basophils (%) (Auto) 0, Neutrophils # (Auto) 12.4H, Lymphocytes # (Auto) 1.0, Monocytes # (Auto) 5.4H, Eosinophils # (Auto) 0.1, Basophils # (Auto) 0.0, Immature Granulocyte # (Auto) 0.4H, Neutrophils % (Manual) 64, Lymphocytes % (Manual) 5, Monocytes % (Manual) 30, Eosinophils % (Manual) 1, Percent Immature Platelet Fraction 22.0H, Blood Morphology Comment NORMAL, Absolute Reticulocyte Count 86, Percent Reticulocyte Count 1.56, Prothrombin Time 19.8H, INR Comment 1.6H, D-Dimer 2.74H, Sodium Level 137, Potassium Level 3.9, Chloride Level 106, Carbon Dioxide Level 20L, Anion Gap 11, Blood Urea Nitrogen 29H, Creatinine 2.28H, Estimat Glomerular Filtration Rate 28, BUN/Creatinine Ratio 13, Glucose Level 189H, Calcium Level 8.7, Procalcitonin 6.13H 01/24/21 17:05: Lactic Acid Level 1.29 01/24/21 17:30: Glucometer 202H 01/24/21 22:28: Urine Color YELLOW, Urine Clarity SL CLOUDY, Urine pH 5.5, Urine Specific [place] 1.020, Urine Protein TRACEH, Urine Glucose (UA) TRACEH, Urine Ketones 1+H, Urine Nitrite NEGATIVE, Urine Bilirubin NEGATIVE, Urine Urobilinogen 0.2, Urine Leukocyte Esterase 1+H, Urine RBC (Auto) 3+H, Urine RBC 10-25H, Urine WBC 2-5, Urine Squamous Epithelial Cells 0-2, Urine Crystals PRESENTH, Urine Amorphous Sediment FEW GOPAL URATESH, Urine Bacteria FEWH, Urine Casts PRESENT, Urine Granular Casts 0-2H, Urine Mucus NEGATIVE, Urine Culture Indicated YES 01/24/21 23:23: Glucometer 173H 01/25/21 05:23: White Blood Count 18.3H, Red Blood Count 4.06L, Hemoglobin 10.8#L, Hematocrit 34L, Mean Corpuscular Volume 84, Mean Corpuscular Hemoglobin 27, Mean Corpuscular Hemoglobin Concent 32, Red Cell Distribution Width 14.8H, Platelet Count 65L, Mean Platelet Volume 11.9, Immature Granulocyte % (Auto) 2, Neutrophils (%) (Auto) 59, Lymphocytes (%) (Auto) 7L, Monocytes (%) (Auto) 31H, Eosinophils (%) (Auto) 0, Basophils (%) (Auto) 0, Neutrophils # (Auto) 10.9H, Lymphocytes # (Auto) 1.3, Monocytes # (Auto) 5.7H, Eosinophils # (Auto) 0.0, Basophils # (Auto) 0.0, Immature Granulocyte # (Auto) 0.4H, Percent Immature Platelet Fraction 15.3H, Sodium Level 142, Potassium Level 3.8, Chloride Level 107, Carbon Dioxide Level 18L, Anion Gap 17H, Blood Urea Nitrogen 28H, Creatinine 2.16H, Estimat Glomerular Filtration Rate 29, BUN/Creatinine Ratio 13, Glucose Level 191H, Calcium Level 8.8, Corrected Calcium 9.8, Phosphorus Level 3.4, Magnesium Level 1.7, Total Bilirubin 0.4, Aspartate Amino Transf (AST/SGOT) 26, Alanine Aminotransferase (ALT/SGPT) 10, Alkaline Phosphatase 56, Total Protein 6.0L, Albumin 2.7L Microbiology 01/24/21 C. difficile GDH Antigen & Toxins - Final, Complete 01/23/21 MRSA Screen - Final, Complete MRSA not isolated Assessment/Plan Assessment/Plan Assessment/Plan Diverticulitis - C-diff neg Sepsis Chronic Kidney Disease HTN, DM MSK pain from left shoulder, elbow and wrist secondary to fall. Adominal pain w/elevated wbc & paroxysmal hypotension Plan: pain control, IV abx, monitor labs, monitor abdominal exam, Supportive care Watch and see how he does. No surgical indications at this time. PT & OT Move to 4th floor DELMIS SAEED DO 01/25/21 1419: Subjective Time Seen by a Provider: 12:02 Subjective/Events-last exam Pt seen and examined, his main complaint was the need to go to the bathroom. He was thirsty as well. Review of Systems HEENT: No Head Aches, No Visual Changes Pulmonary: No Dyspnea, No Cough Cardiovascular: No: Chest Pain, Palpitations Gastrointestinal: No: Nausea, Vomiting, Abdominal Pain Musculoskeletal: shoulder pain, arm pain, hand pain, leg pain; No: back pain Neurological: Confusion Objective Exam General Appearance: No Apparent Distress, WD/WN Respiratory: Lungs Clear, Normal Breath Sounds, No Accessory Muscle Use, No Respiratory Distress Cardiovascular: No Murmur, Tachycardia Gastrointestinal: soft, no organomegaly, tenderness (with deep palpation) Neurologic/Psychiatric: Alert, Disoriented (possible mild dementia) Assessment/Plan Assessment/Plan Assessment/Plan Possible Diverticulitis - C-diff neg Sepsis - still elevated WBC and tachy, no source identified yet Chronic Kidney Disease HTN, DM MSK pain from left shoulder, elbow and wrist secondary to fall. Adominal pain w/elevated wbc & paroxysmal hypotension Plan: pain control, IV abx, monitor labs, monitor abdominal exam, Supportive care, ?? possible flex sig to look at area of concern seen on CT (although would be best to do as an outpt, because of increased risk of perforation or making diverticulitis worse). Will start clears Supervisory-Addendum Brief Verification & Attestation Participated in pt care: history, MDM, physical Personally performed: exam, history, MDM, supervision of care Care discussed with: Medical Student Procedures: n/a Verification and Attestation of Medical Student E/M Service A medical student performed and documented this service. I then reviewed and verified all information documented by the medical student and made modifications to such information, when appropriate. I personally performed a physical exam, medical decision making and then discussed any differences between the notes and made revisions as necessary to create one note. Delmis Saeed , 01/25/21 , 14:19 MED HORN Jan 25, 2021 09:03 DELMIS SAEED DO Jan 25, 2021 14:19
--- NOTE | 2021-01-25 12:18 | Occupational Therapy Eval ---
OT Evaluation-General/PLF Medical Diagnosis Admission Date Jan 23, 2021 at 20:03 Medical Diagnosis: diverticulitis Onset Date: Jan 23, 2021 Therapy Diagnosis Therapy Diagnosis: Impaired adls, balance, strength, endurance, Precautions Precautions/Isolations: Fall Prevention, Standard Precautions Safety Interventions: Bed Exit Alarm Referral Physician: Ramila Stinson Reason: Evaluation/Treatment Medical History Pertinent Medical History: DM, HTN Additional Medical History dementia per . Current History Pt presents with wrist pain and abdominal pain after fall at home. X-ray reveals no evidence of acute fx or dislocation at shoulder or humerus. No wrist x-ray present. Pt poor historian. Family in only briefly and reports that he was indep with adls and ambulated without a walker at baseline. Reviewed History: Yes ADL-Prior Level of Function SCALE: Activities may be completed with or without assistive devices. 2-[id number]-[id number] completes the activity by him/herself with no assistance from a helper. 5-Set-up or Clean-up Assistance-helper sets up or cleans up; patient completes activity. [place] assists only prior to or following the activity. 4-Supervision or Touching Assistance-helper provides verbal cues and/or touching/steadying and/or contact guard assistance as patient completes activity. Assistance may be provided throughout the activity or intermittently. 3-Partial/Moderate Assistance-helper does LESS THAN HALF the effort. [place] lifts, holds or supports trunk or limbs, but provides less than half the effort. 2-Substantial/Maximal Assistance-helper does MORE THAN HALF the effort. [place] lifts or holds trunk or limbs and provides more than half the effort. 6-[id number]-nwguvt does ALL the effort. Patient does none of the effort to complete the activity. Or, the assistance of 2 or more helpers is required for the patient to complete the activity. If activity was not attempted, code reason: 7-Patient Refused. 9-Not Applicable-not attempted and the patient did not perform the activity before the current illness, exacerbation or injury. 10-Not Attempted due to Environmental Limitations-(lack of equipment, weather restraints, etc.). 88-Not Attempted due to Medical Conditions or Safety Concerns. Self Care: Independent Functional Cognition: Needed Some Help OT Current Status Subjective Pt screaming out in pain when touched. Verbalizes pain in knee and heels. Appearance Returned to supine, all needs within reach, RN in room. Mental Status/Objective Patient Orientation: Person, Confused Attachments: Fields Catheter, IV ADL-Treatment On/Off Footwear (QC): 1 Toileting Hygiene (QC): 1 Pt supine on bedpan at therapy arrival. No bowel present in bedpan with removal. Max a to sit EOB. Upon sitting upright, pt verbalizes immediate urgency to have BM. Socks donned by therapist due to urgency. Max a x1 to stand, assist x2 to pivot towards commode. Dep for magdalena care, poor standing tolerance. When transferring back to bed, pt demonstrates difficulty transitioning feet and impulsively attempts to sit on edge of bed. Max a to push hips posteriorly towards bed to keep from falling. Pt has Poor safety awareness and is a high fall risk. Education OT Patient Education: Correct positioning, Progress toward Goal/Update tx plan, Purpose of tx/functional activities, Safety issues, Transfer techniques Teaching Recipient: Patient Teaching Methods: Discussion Response to Teaching: Reinforcement Needed OT Ticketer Goals Ticketer Goals Time Frame: Feb 17, 2021 Eating (QC): 5 Oral Hygiene (QC): 4 Toileting Hygiene (QC): 4 Lower Body Dressing (QC): 4 On/Off Footwear (QC): 4 1=Demonstrate adherence to instructed precautions during ADL tasks. 2=Patient will verbalize/demonstrate understanding of assistive devices/mod ifications for ADL. 3=Patient will improve strength/tolerance for activity to enable patient to perform ADL's. OT Education/Plan Problem List/Assessment Assessment: Decreased Activ Tolerance, Decreased Safety Aware, Dependent Transfers, Impaired Bed Mobility, Impaired Cognition, Impaired Funct Balance, Impaired I ADL's, Impaired Self-Care Skills Discharge Recommendations Plan/Recommendations: Continue POC Comment ongoing assessment Treatment Plan/Plan of Care Treatment,Training & Education: Yes Patient would benefit from OT for education, treatment and training to promote independence in ADL's, mobility, safety and/or upper extremity function for ADL's. Plan of Care: ADL Retraining, Caregiver Training, Functional Mobility, Group Exercise/Act as Ind, UE Funct Exercise/Act Treatment Duration: Feb 17, 2021 Frequency: 5 times per week Estimated Hrs Per Day: .25 hour per day Agreement: Yes Time/GCodes Start Time: 11:50 Stop Time: 12:07 Total Time Billed (hr/min): 17 Billed Treatment Time 1 visit Alison Saucedo OT Jan 25, 2021 12:18
--- NOTE | 2021-01-25 12:47 | Physical Therapy Evaluation ---
PT Evaluation-General Medical Diagnosis Admission Date Jan 23, 2021 at 20:03 Medical Diagnosis: diverticulitis Onset Date: Jan 23, 2021 Therapy Diagnosis Therapy Diagnosis: generalized weakness/debility Precautions Precautions/Isolations: Fall Prevention, Standard Precautions Referral Physician: Ramila Reason for Referral: Evaluation/Treatment Medical History Pertinent Medical History: DM, HTN Current History Transfer from [facility] secondary to fall and abdominal pain Reviewed History: Yes Social History Home: Single Level Current Living Status: Spouse Prior Prior Level of Function SCALE: Activities may be completed with or without assistive devices. 7-Vbmnracbaz-qitojkz completes the activity by him/herself with no assistance from a helper. 5-Set-up or Clean-up Assistance-helper sets up or cleans up; patient completes activity. [place] assists only prior to or following the activity. 4-Supervision or Touching Assistance-helper provides verbal cues and/or touching/steadying and/or contact guard assistance as patient completes activity. Assistance may be provided throughout the activity or intermittently. 3-Partial/Moderate Assistance-helper does LESS THAN HALF the effort. [place] lifts, holds or supports trunk or limbs, but provides less than half the effort. 2-Substantial/Maximal Assistance-helper does MORE THAN HALF the effort. [place] lifts or holds trunk or limbs and provides more than half the effort. 8-Nprhugcsl-khyikn does ALL the effort. Patient does none of the effort to complete the activity. Or, the assistance of 2 or more helpers is required for the patient to complete the activity. If activity was not attempted, code reason: 7-Patient Refused. 9-Not Applicable-not attempted and the patient did not perform the activity before the current illness, exacerbation or injury. 10-Not Attempted due to Environmental Limitations-(lack of equipment, weather restraints, etc.). 88-Not Attempted due to Medical Conditions or Safety Concerns. Bed Mobility: 6 Transfers (B,C,W/C): 6 Gait: 6 Stairs: 6 Indoor Mobility (Ambulation): Independent Stairs: Independent Prior Devices Use: None PT Evaluation-Current Subjective Patient request commode use for BM. Noted 10/10 abdominal pain per patient report. Pain Numeric Pain Scale: 10-Worst Possible Pain Location: Lower Location Body Site: Abdomen Pain Description: Pressure, Acute Objective Patient Orientation: Normal For Age Attachments: Fields Catheter, IV ROM/Strength ROM Lower Extremities bilateral LE WFL Strength Lower Extremities 4-/5 grossly bilateral LE Integumentary/Posture Integumentary refer to nursing notes (noted heel wound left) Bowel Incontinence: Yes Bladder Incontinence: Fields Cath Posture WFL Neuromuscular (Tone, Coordination, Reflexes) grossly intact Sensory Vision: Functional Hearing: Functional Transfers Roll Left to Right (QC): 4 Sit to Lying (QC): 6 Lying to Sitting/Side of Bed(Q: 3 Sit to Stand (QC): 3 Toilet Transfer (QC): 3 ([facility] ) Gait Does the Patient Walk?: No and Walking Goal IS indicated Mode of Locomotion: Walk Anticipated Mode of Locomotion: Walk Walk 10 feet (QC): 88 Walk 50 ft with 2 Turns(QC): 88 Walk 150 ft (QC): 88 Gait Assistive Device: FWW Balance Sitting Static: Normal Sitting Dynamic: Normal Standing Static: Fair Standing Dynamic: Poor Treatment Patient transferred to [facility] with min to mod assist and has small BM. Patient demanded to return to bed. Patient performed sit to supine independently. Assessment/Needs 80 y.o. male, will benefit from skilled PT to address functional strength and mobility to improve current LOF. Patient is currently limited due to abdominal pain. Family present. Rehab Potential: Fair PT Toll Patrolman Goals Toll Patrolman Goals PT Toll Patrolman Goals Time Frame: Feb 03, 2021 Roll Left & Right (QC): 6 Sit to Lying (QC): 6 Lying-Sitting on Side/Bed(QC): 6 Sit to Stand (QC): 4 Chair/Vrs-ef-Omiig Xfer(QC): 4 Toilet Transfer (QC): 4 Walk 10 feet (QC): 4 Walk 50ft with 2 Turns (QC): 4 Walk 150 ft (QC): 4 PT Plan Problem List Problem List: Activity Tolerance, Functional Strength, Safety, Balance, Gait, Transfer, Bed Mobility Treatment/Plan Treatment Plan: Continue Plan of Care Treatment Plan: Bed Mobility, Education, Functional Activity Donell, Functional Strength, Gait, Safety, Therapeutic Exercise, Transfers Treatment Duration: Feb 03, 2021 Frequency: 6 times per week Estimated Hrs Per Day: .5 hour per day Patient and/or Family Agrees t: Yes Time/GCodes Time In: 1150 Time Out: 1207 Total Billed Treatment Time: 17 Total Billed Treatment 1 visit [facility] 17 min RAH JUDGE PT Jan 25, 2021 12:47
--- NOTE | 2021-01-25 15:40 | Diagnostic Imaging Report ---
PROCEDURE: CT abdomen without contrast. TECHNIQUE: Multiple contiguous axial images were obtained through the abdomen without the use of intravenous contrast. Auto Exposure Controls were utilized during the CT exam to meet ALARA standards for radiation dose reduction. INDICATION: Abdominal pain. Imaging through lung bases show some dependent atelectasis in both lower lobes. Coronary arterial calcifications are present. No discrete liver mass is identified. Gallbladder surgically absent. There is no biliary duct dilatation. The pancreas and spleen are unremarkable. No adrenal mass is detected. No renal calculi are identified. There is no hydronephrosis. Aorta is calcified but nonaneurysmal. No free air is seen. The bowel loops are normal caliber. There is no free fluid or fluid collection identified. The bony structures are nonacute. IMPRESSION: Unremarkable noncontrast CT of the abdomen. Dictated by: Dictated on workstation # [id number]
[2021-01-25] MEDS: cefTRIAXone 2,000 MG in NS (IVPB) 50 ML IV SCH (21:05)
[2021-01-26 00:11] VITALS: BP 123/60
[2021-01-26] MEDS: inSUlin ASPART (NovoLOG) 1 UNIT/0.01 ML (CHARGE PER UNIT) SC SCH ×5 (00:20→21:10)
[2021-01-26 04:27] VITALS: BP 139/68
[2021-01-26] MEDS: LACTATED RINGERS 1,000 ML IV SCH ×3 (05:33→18:01)
[2021-01-26] MEDS: metroNIDAZOLE 500MG/100ML IVPB 100 ML IV SCH (05:34)
[2021-01-26 05:50] LABS: BASOPHILS % (AUTO) 0 % (0-10); EOSINOPHILS % (AUTO) 0 % (0-10); HEMATOCRIT 33 % (40-54); HEMOGLOBIN 10.5 g/dL (13.3-17.7); LYMPHOCYTES # (AUTO) 1.2 10^3/uL (1.0-4.0); LYMPHOCYTES % (AUTO) 11 % (12-44); MEAN CORPUSCULAR HEMOGLOBIN 26 pg (25-34); MEAN CORPUSCULAR HGB CONC 32 g/dL (32-36); MEAN CORPUSCULAR VOLUME 83 fL (80-99); MONOCYTES # (AUTO) 3.6 10^3/uL (0.0-1.0); MONOCYTES % (AUTO) 35 % (0-12); NEUTROPHILS # (AUTO) 5.1 10^3/uL (1.8-7.8); NEUTROPHILS % (AUTO) 50 % (42-75); PLATELET COUNT 52 10^3/uL (130-400); WHITE BLOOD COUNT 10.3 10^3/uL (4.3-11.0)
[2021-01-26 06:17] LABS: ALBUMIN 2.6 GM/DL (3.2-4.5); POTASSIUM 3.2 MMOL/L (3.6-5.0)
[2021-01-26 06:18] LABS: CALCIUM 8.8 MG/DL (8.5-10.1)
[2021-01-26 06:20] LABS: TOTAL PROTEIN 5.8 GM/DL (6.4-8.2)
[2021-01-26 06:21] LABS: BILIRUBIN,TOTAL 0.3 MG/DL (0.1-1.0)
[2021-01-26 06:23] LABS: CREATININE SERUM 1.72 MG/DL (0.60-1.30); PHOSPHORUS 2.8 MG/DL (2.3-4.7)
[2021-01-26 06:26] LABS: MAGNESIUM 1.7 MG/DL (1.6-2.4)
[2021-01-26] MEDS: MAGNESIUM 1 GM/100 ML IVPB 100 ML IV SCH (06:27)
[2021-01-26] MEDS: POTASSIUM CL 10MEQ/50ML IVPB 50 ML IV SCH (06:27)
[2021-01-26] MEDS: KCL 20 MEQ TAB (K-DUR) PO SCH (06:27)
[2021-01-26 08:00] VITALS: BP 131/60
[2021-01-26] MEDS ORDERED: KCL 20 MEQ TAB (K-DUR) PO NR ×2 (08:00→10:00)
[2021-01-26] MEDS: ENOXAPARIN 40 MG/0.4 ML (LOVENOX) SYR SC SCH (08:50)
--- NOTE | 2021-01-26 08:53 | Progress Note - Surgery ---
FIORDALIZALORIMED OLEARY 01/26/21 0853: Subjective Date Seen by a Provider: Jan 26, 2021 Time Seen by a Provider: 08:02 Subjective/Events-last exam When I visited the patient today he was resting in bed comfortably. He states that he is feeling much better today & has been up to use the commode. No BM today, but regular urination, no abdominal pain and tolerating his liquid diet without issues. He still complains of MSK pain to his left UE, which has improved some. WBC also continue to trend down - 10.3 today Review of Systems General: No Chills, No Night Sweats; Fatigue, Appetite HEENT: No Head Aches, No Visual Changes, No Dysphasia, No Sore Throat Pulmonary: No Dyspnea, No Cough, No Pleuritic Chest Pain Cardiovascular: No: Chest Pain, Palpitations, Edema Gastrointestinal: No: Nausea, Vomiting, Abdominal Pain, Diarrhea, Constipation, Melena, Hematochezia Genitourinary: No Dysuria, No Frequency, No Incontinence Musculoskeletal: shoulder pain, arm pain, hand pain; No: neck pain, back pain Neurological: Weakness; No: Numbness, Change in speech, Confusion Focused Exam Lactate Level 01/24/21 17:05: Lactic Acid Level 1.29 Objective Exam Vital Signs Date Time Temp Pulse Resp B/P (MAP) Pulse Ox O2 Delivery O2 Flow Rate FiO2 01/26/21 04:27 36.4 96 17 139/68 (91) 92 Room Air 01/26/21 01:00 101 01/26/21 00:11 36.8 102 19 123/60 (81) 93 Room Air 01/25/21 21:00 90 Room Air 01/25/21 19:20 36.2 102 20 153/67 (95) 92 Room Air 01/25/21 19:00 103 01/25/21 15:40 36.8 104 22 122/58 (79) 94 Room Air 01/25/21 12:06 36.5 104 22 125/56 (79) 94 Nasal Cannula 2.00 01/25/21 10:00 110 8 124/71 (88) 93 Nasal Cannula 01/25/21 09:00 110 8 128/96 (112) 91 Nasal Cannula 2.00 I & O 01/26/21 07:00 Intake Total 400 ml Output Total 800 ml Balance -400 ml Capillary Refill : General Appearance: No Apparent Distress, WD/WN HEENT: PERRL/EOMI, Pharynx Normal Neck: Full Range of Motion, Non Tender, Supple Respiratory: Chest Non Tender, Lungs Clear, Normal Breath Sounds, No Accessory Muscle Use, No Respiratory Distress Cardiovascular: No Edema, No Gallop, No Murmur, Normal Peripheral Pulses, Tachycardia Peripheral Pulses: 2+ Radial Pulses (R), 2+ Radial Pulses (L) Gastrointestinal: normal bowel sounds, non tender, soft, no organomegaly, no pulsatile mass Extremity: Normal Capillary Refill, Normal Inspection, Normal Range of Motion ( - LUE limited ROM due to pain.), Non Tender, No Calf Tenderness, No Pedal Edema Neurologic/Psychiatric: Alert, Motor Weakness Skin: Normal Color, Warm/Dry Lymphatic: No Adenopathy (cervical and axillary) Results Lab Laboratory Tests 01/25/21 12:10: Glucometer 168H 01/25/21 18:13: Glucometer 218H 01/25/21 23:30: Glucometer 265H 01/26/21 05:13: Sodium Level 141, Potassium Level 3.2L, Chloride Level 107, Carbon Dioxide Level 22, Anion Gap 12, Blood Urea Nitrogen 26H, Creatinine 1.72H, Estimat Glomerular Filtration Rate 38, BUN/Creatinine Ratio 15, Glucose Level 213H, Calcium Level 8.8, Corrected Calcium 9.9, Phosphorus Level 2.8, Magnesium Level 1.7, Total Bilirubin 0.3, Aspartate Amino Transf (AST/SGOT) 18, Alanine Aminotransferase (ALT/SGPT) 9, Alkaline Phosphatase 52, Total Protein 5.8L, Albumin 2.6L 01/26/21 05:30: White Blood Count 10.3, Red Blood Count 3.97L, Hemoglobin 10.5L, Hematocrit 33L, Mean Corpuscular Volume 83, Mean Corpuscular Hemoglobin 26, Mean Corpuscular Hemoglobin Concent 32, Red Cell Distribution Width 15.0H, Platelet Count 52L, Mean Platelet Volume , Immature Granulocyte % (Auto) 3, Neutrophils (%) (Auto) 50, Lymphocytes (%) (Auto) 11L, Monocytes (%) (Auto) 35H, Eosinophils (%) (Auto) 0, Basophils (%) (Auto) 0, Neutrophils # (Auto) 5.1, Lymphocytes # (Auto) 1.2, Monocytes # (Auto) 3.6H, Eosinophils # (Auto) 0.0, Basophils # (Auto) 0.0, Immature Granulocyte # (Auto) 0.3H Microbiology 01/24/21 Urine Culture - Final, Complete NO GROWTH 01/24/21 C. difficile GDH Antigen & Toxins - Final, Complete 01/23/21 MRSA Screen - Final, Complete MRSA not isolated Assessment/Plan Assessment/Plan Assessment/Plan Possible Diverticulitis - C-diff neg Sepsis - still elevated WBC and tachy, no source identified yet Chronic Kidney Disease HTN, DM MSK pain from left shoulder, elbow and wrist secondary to fall. Adominal pain w/elevated wbc & paroxysmal hypotension Plan: pain control, IV abx, monitor labs, monitor abdominal exam, Supportive care. PT & OT Tolerating liquid diet - advance to soft foods. DELMIS ESQUEDA DO 01/26/21 1215: Subjective Time Seen by a Provider: 10:01 Subjective/Events-last exam Pt seen and examined, states less abdominal pain today and tolerating clears. Review of Systems General: Fatigue, Appetite Pulmonary: No Dyspnea, No Cough Cardiovascular: No: Chest Pain, Palpitations Gastrointestinal: No: Nausea, Vomiting, Abdominal Pain Genitourinary: Other (tenorio in place) Musculoskeletal: shoulder pain, arm pain, hand pain Neurological: Weakness Objective Exam General Appearance: No Apparent Distress, WD/WN Respiratory: Chest Non Tender, Lungs Clear, Normal Breath Sounds, No Accessory Muscle Use, No Respiratory Distress Cardiovascular: Regular Rate, Rhythm, No Murmur Gastrointestinal: non tender, soft, no organomegaly, no pulsatile mass Neurologic/Psychiatric: Alert, Motor Weakness Assessment/Plan Assessment/Plan Assessment/Plan Possible Diverticulitis - C-diff neg Sepsis - resolve, but tachy and still no source identified yet Chronic Kidney Disease HTN, DM MSK pain from left shoulder, elbow and wrist secondary to fall. Adominal pain w/elevated wbc & paroxysmal hypotension Plan: pain control, IV abx, monitor labs, monitor abdominal exam, Supportive care. PT & OT Tolerating liquid diet - advance to soft foods. Supervisory-Addendum Brief Verification & Attestation Participated in pt care: history, MDM, physical Personally performed: exam, history, MDM, supervision of care Care discussed with: Medical Student Procedures: n/a Verification and Attestation of Medical Student E/M Service A medical student performed and documented this service. I then reviewed and verified all information documented by the medical student and made modifications to such information, when appropriate. I personally performed a physical exam, medical decision making and then discussed any differences between the notes and made revisions as necessary to create one note. Delmis Esqueda , 01/26/21 , 12:15 MED HORN Jan 26, 2021 08:53 DELMIS ESQUEDA DO Jan 26, 2021 12:15
--- NOTE | 2021-01-26 10:15 | Physical Therapy Daily Note ---
PT Daily Note-Current Subjective Patient reluctantly agrees to PT. Continues to yell in pain with and without touch. Mental Status Patient Orientation: Confused Attachments: Tenorio Catheter, IV Transfers SCALE: Activities may be completed with or without assistive devices. 5-Hmhgkuuooz-zdqfocl completes the activity by him/herself with no assistance from a helper. 5-Set-up or Clean-up Assistance-helper sets up or cleans up; patient completes activity. [place] assists only prior to or following the activity. 4-Supervision or Touching Assistance-helper provides verbal cues and/or touching/steadying and/or contact guard assistance as patient completes activity. Assistance may be provided throughout the activity or intermittently. 3-Partial/Moderate Assistance-helper does LESS THAN HALF the effort. [place] lifts, holds or supports trunk or limbs, but provides less than half the effort. 2-Substantial/Maximal Assistance-helper does MORE THAN HALF the effort. [place] lifts or holds trunk or limbs and provides more than half the effort. 8-Mnzltwsqx-uxeitv does ALL the effort. Patient does none of the effort to complete the activity. Or, the assistance of 2 or more helpers is required for the patient to complete the activity. If activity was not attempted, code reason: 7-Patient Refused. 9-Not Applicable-not attempted and the patient did not perform the activity before the current illness, exacerbation or injury. 10-Not Attempted due to Environmental Limitations-(lack of equipment, weather restraints, etc.). 88-Not Attempted due to Medical Conditions or Safety Concerns. Lying to Sitting/Side of Bed(Q: 3 Sit to Stand (QC): 3 Chair/Jro-yt-Xojiy Xfer(QC): 3 Toilet Transfer (QC): 3 Gait Training Distance: 5' x 3 Gait Assistive Device: FWW shuffle side steps Assessment Patient adamantly declined to attempt ambulation. Continues to have bowel and urinary urgency with tenorio catheter in place and transfer to [facility]. Patient does become agitated and resistive with mobility and with RN during IV dressing change. PT Usp Goals Mixer Driver Goals PT Mixer Driver Goals Time Frame: Feb 03, 2021 Roll Left & Right (QC): 6 Sit to Lying (QC): 6 Lying-Sitting on Side/Bed(QC): 6 Sit to Stand (QC): 4 Chair/Lcv-st-Fvjch Xfer(QC): 4 Toilet Transfer (QC): 4 Walk 10 feet (QC): 4 Walk 50ft with 2 Turns (QC): 4 Walk 150 ft (QC): 4 PT Plan Treatment/Plan Treatment Plan: Continue Plan of Care Treatment Plan: Bed Mobility, Education, Functional Activity Donell, Functional Strength, Gait, Safety, Therapeutic Exercise, Transfers Treatment Duration: Feb 03, 2021 Frequency: 6 times per week Estimated Hrs Per Day: .5 hour per day Patient and/or Family Agrees t: Yes Time/GCodes Time In: 850 Time Out: 907 Total Billed Treatment Time: 17 Total Billed Treatment 1 visit [facility] 17 min RAH JUDGE PT Jan 26, 2021 10:15
--- NOTE | 2021-01-26 11:56 | Progress Note - Hospitalist ---
PEYTON ALBERTO 01/26/21 1156: Subjective HPI/CC On Admission Roger Segura is an 80 year old male with PMH HTN, T2DM, obesity, who presented to the [place] ER after a fall at home with wrist pain. He also reported abdominal pain. He is a poor historian but is able to answer some questions. He denies pain. He deneis fever. He appears uncomfortable. He was found to be septic with possible acute diverticulitis and was transferred to [facility] [address]. He had issues with hypotension while en route. Subjective/Events-last exam PT was laying comfortably in bed this morning. He reports that his pain is doing better compared to yesterday. He continues to report that he is in [place]. He is unable to state the year, but did state the correct month. He continues to have neuropathy related pain. Review of Systems General: No Chills, No Night Sweats HEENT: No Head Aches, No Visual Changes Pulmonary: No Dyspnea, No Cough Cardiovascular: No: Chest Pain, Palpitations Gastrointestinal: No: Nausea, Vomiting Genitourinary: No Dysuria, No Frequency Neurological: Other Focused Exam Lactate Level 01/24/21 17:05: Lactic Acid Level 1.29 Objective Exam Vital Signs Vital Signs Date Time Temp Pulse Resp B/P (MAP) Pulse Ox O2 Delivery O2 Flow Rate FiO2 01/26/21 12:00 35.8 98 20 139/65 (89) 92 Room Air 01/25/21 12:06 2.00 Capillary Refill : General Appearance: No Apparent Distress, Chronically ill, Obese HEENT: PERRL/EOMI, Moist Mucous Membranes Respiratory: Chest Non Tender, Lungs Clear, Normal Breath Sounds, No Accessory Muscle Use, No Respiratory Distress Cardiovascular: Regular Rate, Rhythm, No Murmur, Normal Peripheral Pulses Gastrointestinal: No Organomegaly, No Pulsatile Mass, Non Tender, Soft Rectal: Deferred Extremity: Calf Tenderness (Ride sided ), Other (left heal tenderness ) Neurologic/Psychiatric: Alert, No Motor/Sensory Deficits, Disoriented (unable to state locatin or year. ) Skin: Normal Color, Warm/Dry Results/Procedures Lab Laboratory Tests 01/26/21 05:13 01/26/21 05:30 Patient resulted labs reviewed. Imaging: Reviewed Imaging Report Assessment/Plan Assessment and Plan Assess & Plan/Chief Complaint Septic shock Acute diverticulitis UTI Type II DM Diabetic neuropathy Acute kidney injury superimposed on chronic kidney disease Thrombocytopenia Delirium Septic shock Acute diverticulitis UTI Continue IV fluids, IV antibiotics. Diabetic Neuropathy Patient will restart Gabapentin Debility Consider SNF for his recovery. NADIA LIRA MD 01/26/21 1852: Subjective HPI/CC On Admission Date Seen by Provider: Jan 26, 2021 Time Seen by Provider: 11:05 Assessment/Plan Assessment and Plan Assess & Plan/Chief Complaint Sepsis and diverticulitis improving. Transition to oral antibiotics. Restart h ome neuropathy meds. Continued confusion, delirium vs dementia. Debility persists, will likely require retirement facility on discharge. Diagnosis/Problems Diagnosis/Problems (1) Acute diverticulitis Status: Acute (2) Delirium Status: Acute (3) Debility Status: Acute (4) Septic shock Status: Resolved Resolution Date/Time: 01/25/21 @ 18:12 Supervisory-Addendum Brief Verification & Attestation Participated in pt care: history, MDM, physical Personally performed: exam, history, MDM, supervision of care Care discussed with: Medical Student Procedures: n/a Results interpretation: Verified all documentation A medical student performed and documented this service in my presence. I reviewed and verified all information documented by the medical student and made modifications to such information, when appropriate. I personally performed the physical exam and medical decision making. PEYTON ALBERTO Jan 26, 2021 11:56 NADIA LIRA MD Jan 26, 2021 18:52
[2021-01-26 12:00] VITALS: BP 139/65
[2021-01-26] MEDS ORDERED: CEFDINIR 300 MG (OMNICEF) CAP PO ONE (12:15)
[2021-01-26] MEDS ORDERED: GABAPENTIN 600 MG (NEURONTIN) TAB PO ONE (12:30)
[2021-01-26] MEDS: metroNIDAZOLE 500 MG (FLAGYL) TAB PO SCH ×2 (13:18→19:53)
--- NOTE | 2021-01-26 13:54 | Occupational Ther Daily Note ---
OT Current Status-Daily Note Subjective Pt supine in bed, confused with visitor in room. No c/o pain with R UE, c/o pain with L UE did not rate. Pt agrees to therapy. Mental Status/Objective Patient Orientation: Confused, Place, [place] Attachments: Fields Catheter, IV ADL-Treatment Therapy Code Descriptions/Definitions Functional [place] Measure: 0=Not Assessed/NA 4=Minimal Assistance 1=Total Assistance 5=Supervision or Setup 2=Maximal Assistance 6=Modified [place] 3=Moderate Assistance 7=Complete IndependenceSCALE: Activities may be completed with or without assistive devices. 9-Nrelkhypvi-droppdm completes the activity by him/herself with no assistance from a helper. 5-Set-up or Clean-up Assistance-helper sets up or cleans up; patient completes activity. [place] assists only prior to or following the activity. 4-Supervision or Touching Assistance-helper provides verbal cues and/or touching/steadying and/or contact guard assistance as patient completes activity. Assistance may be provided throughout the activity or intermittently. 3-Partial/Moderate Assistance-helper does LESS THAN HALF the effort. [place] lifts, holds or supports trunk or limbs, but provides less than half the effort. 2-Substantial/Maximal Assistance-helper does MORE THAN HALF the effort. [place] lifts or holds trunk or limbs and provides more than half the effort. 2-Kpnohvcjy-heslby does ALL the effort. Patient does none of the effort to complete the activity. Or, the assistance of 2 or more helpers is required for the patient to complete the activity. If activity was not attempted, code reason: 7-Patient Refused. 9-Not Applicable-not attempted and the patient did not perform the activity before the current illness, exacerbation or injury. 10-Not Attempted due to Environmental Limitations-(lack of equipment, weather restraints, etc.). 88-Not Attempted due to Medical Conditions or Safety Concerns. Other Treatment Pt participated in skilled UE manual muscle exercises to increase UE strength, ROM for daily activities. Pt engaged in PROM R shoulder ~170* flexion 10 reps, AROM with resistance R shldr ext. AAROM R shoulder horizontal adduction 10 reps then 10 reps with resistance. Pt completed squeezing OTAS hand using both hands with fair strength. Pt declined exercising L UE, stating that L wrist and rest of L UE was painful. Pt required cues to stay awake throughout treatment. After session, pt lying in bed asleep with call light/phone in reach. All needs met in room. Visitor present in room. OT Community Health Outreach Worker Goals Half-Way Goals Time Frame: Feb 17, 2021 Eating (QC): 5 Oral Hygiene (QC): 4 Toileting Hygiene (QC): 4 Lower Body Dressing (QC): 4 On/Off Footwear (QC): 4 1=Demonstrate adherence to instructed precautions during ADL tasks. 2=Patient will verbalize/demonstrate understanding of assistive devices/modifications for ADL. 3=Patient will improve strength/tolerance for activity to enable patient to p erform ADL's. OT Education/Plan Problem List/Assessment Assessment: Decreased UE Strength, Impaired Cognition Discharge Recommendations Plan/Recommendations: Continue POC Treatment Plan/Plan of Care Patient would benefit from OT for education, treatment and training to promote independence in ADL's, mobility, safety and/or upper extremity function for ADL's. Plan of Care: ADL Retraining, Caregiver Training, Functional Mobility, Group Exercise/Act as Ind, UE Funct Exercise/Act Treatment Duration: Feb 17, 2021 Frequency: 5 times per week Estimated Hrs Per Day: .25 hour per day Agreement: Yes Rehab Potential: Fair Time/GCodes Start Time: 13:28 Stop Time: 13:38 Total Time Billed (hr/min): 10 Billed Treatment Time 1 Visit- Ex (10 min) JARED OLEARY Jan 26, 2021 13:54
[2021-01-26 16:05] VITALS: BP 129/59
[2021-01-26 19:43] VITALS: BP 139/63
[2021-01-26] MEDS: CEFDINIR 300 MG (OMNICEF) CAP PO SCH (19:53)
[2021-01-26] MEDS: morphine INJ 4 MG/ML 1 ML (VIAL/SYRINGE) IVP PRN (19:53)
[2021-01-26] MEDS: GABAPENTIN 600 MG (NEURONTIN) TAB PO SCH (19:53)
[2021-01-27] VITALS (7 sets, daily range): BP systolic 124–162; BP diastolic 70–89
[2021-01-27] MEDS: LACTATED RINGERS 1,000 ML IV SCH (05:10)
[2021-01-27 05:28] LABS: EOSINOPHILS % (AUTO) 0 % (0-10)
[2021-01-27 05:30] LABS: BASOPHILS % (AUTO) 0 % (0-10); HEMATOCRIT 33 % (40-54); HEMOGLOBIN 10.5 g/dL (13.3-17.7); LYMPHOCYTES # (AUTO) 1.2 10^3/uL (1.0-4.0); LYMPHOCYTES % (AUTO) 15 % (12-44); MEAN CORPUSCULAR HEMOGLOBIN 26 pg (25-34); MEAN CORPUSCULAR HGB CONC 32 g/dL (32-36); MEAN CORPUSCULAR VOLUME 83 fL (80-99); MONOCYTES # (AUTO) 2.6 10^3/uL (0.0-1.0); MONOCYTES % (AUTO) 32 % (0-12); NEUTROPHILS # (AUTO) 2.7 10^3/uL (1.8-7.8); NEUTROPHILS % (AUTO) 34 % (42-75); PLATELET COUNT 52 10^3/uL (130-400)
[2021-01-27 05:43] LABS: POTASSIUM 3.5 MMOL/L (3.6-5.0)
[2021-01-27 05:45] LABS: CALCIUM 8.7 MG/DL (8.5-10.1)
[2021-01-27] MEDS: POTASSIUM CL 10MEQ/50ML IVPB 50 ML IV SCH (05:45)
[2021-01-27 05:49] LABS: CREATININE SERUM 1.37 MG/DL (0.60-1.30); PHOSPHORUS 3.2 MG/DL (2.3-4.7)
[2021-01-27 05:52] LABS: MAGNESIUM 1.6 MG/DL (1.6-2.4)
[2021-01-27] MEDS: MAGNESIUM 1 GM/100 ML IVPB 100 ML IV SCH ×3 (06:00→07:38)
[2021-01-27] MEDS: inSUlin ASPART (NovoLOG) 1 UNIT/0.01 ML (CHARGE PER UNIT) SC SCH ×6 (06:15→21:11)
[2021-01-27] MEDS: KCL 20 MEQ TAB (K-DUR) PO SCH (06:16)
--- NOTE | 2021-01-27 07:25 | Progress Note - Surgery ---
ALEM JESUS MED STUDENT 01/27/21 0725: Subjective Date Seen by a Provider: Jan 27, 2021 Time Seen by a Provider: 06:30 Subjective/Events-last exam This is Roger an 80 yo male with the chief complaint of diverticulitis. Upon entering the room Pt was laying in bed watching TV exposing himself without a blanket on. He was confused during questioning and yelled for his Chi at times. He stated that he had a BM yesterday but was unable to answer details. He stated that he is experiencing 0/10 pain and is eating and drinking well. He requested water during the exam. Pt has a catheter. Review of Systems General: No Appetite Gastrointestinal: No: Nausea, Vomiting, Abdominal Pain, Diarrhea, Constipation Neurological: Confusion Focused Exam Lactate Level 01/24/21 17:05: Lactic Acid Level 1.29 Time of Focused Exam: 06:30 Respiratory: Chest Non Tender, Lungs Clear, Normal Breath Sounds, No Accessory Muscle Use, No Respiratory Distress Cardiovascular: Regular Rate, Rhythm, No Edema, No Gallop, No Murmur, Normal Peripheral Pulses Skin: normal color, warm/dry Objective Exam Vital Signs Date Time Temp Pulse Resp B/P (MAP) Pulse Ox O2 Delivery O2 Flow Rate FiO2 01/27/21 04:00 37.0 101 18 162/89 (113) 93 Room Air 01/27/21 00:00 36.8 99 18 124/76 (92) 93 Room Air 01/26/21 19:55 Room Air 01/26/21 19:43 36.2 94 20 139/63 (88) 94 Room Air 01/26/21 16:05 36.5 94 20 129/59 (82) 93 Room Air 01/26/21 12:00 35.8 98 20 139/65 (89) 92 Room Air 01/26/21 09:00 Room Air 01/26/21 08:00 35.8 90 20 131/60 (83) 95 Room Air I & O0 01/27/21 07:00 Intake Total 2630 ml Output Total 2775 ml Balance -145 ml Capillary Refill : General Appearance: No Apparent Distress, Chronically ill, Obese HEENT: PERRL/EOMI, Moist Mucous Membranes Neck: Non Tender, Supple Respiratory: Chest Non Tender, Lungs Clear, Normal Breath Sounds, No Accessory Muscle Use, No Respiratory Distress Cardiovascular: Regular Rate, Rhythm, No Edema, No Gallop, No Murmur, Normal Peripheral Pulses Peripheral Pulses: 2+ Radial Pulses (R), 2+ Radial Pulses (L) Gastrointestinal: non tender, soft Extremity: Normal Inspection, Non Tender, No Calf Tenderness, No Pedal Edema, Other (left heal tenderness ) Neurologic/Psychiatric: Alert, No Motor/Sensory Deficits, Disoriented (unable to state location, yelled for his multiple times during questioning ) Skin: Normal Color, Warm/Dry Lymphatic: No Adenopathy (cervical and supraclavicular) Results Lab Laboratory Tests 01/26/21 11:41: Glucometer 211H 01/26/21 15:30: Glucometer 255H 01/26/21 20:08: Glucometer 279H 01/27/21 05:12: White Blood Count 8.0, Red Blood Count 4.00L, Hemoglobin 10.5L, Hematocrit 33L, Mean Corpuscular Volume 83, Mean Corpuscular Hemoglobin 26, Mean Corpuscular Hemoglobin Concent 32, Red Cell Distribution Width 14.8H, Platelet Count 52L, Mean Platelet Volume , Immature Granulocyte % (Auto) 19, Neutrophils (%) (Auto) 34L, Lymphocytes (%) (Auto) 15, Monocytes (%) (Auto) 32H, Eosinophils (%) (Auto) 0, Basophils (%) (Auto) 0, Neutrophils # (Auto) 2.7, Lymphocytes # (Auto) 1.2, Monocytes # (Auto) 2.6H, Eosinophils # (Auto) 0.0, Basophils # (Auto) 0.0, Immature Granulocyte # (Auto) 1.5H, Percent Immature Platelet Fraction 16.9H, Sodium Level 140, Potassium Level 3.5L, Chloride Level 106, Carbon Dioxide Level 22, Anion Gap 12, Blood Urea Nitrogen 18, Creatinine 1.37H, Estimat Glomerular Filtration Rate 50, BUN/Creatinine Ratio 13, Glucose Level 190H, Calcium Level 8.7, Phosphorus Level 3.2, Magnesium Level 1.6 Microbiology 01/24/21 Urine Culture - Final, Complete NO GROWTH 01/24/21 C. difficile GDH Antigen & Toxins - Final, Complete 01/23/21 MRSA Screen - Final, Complete MRSA not isolated Assessment/Plan Assessment/Plan Assessment/Plan Possible Diverticulitis - C-diff neg Sepsis - resolved, no source identified tachycardia- HR of 101 on 01/27 Chronic Kidney Disease- creatinine of 1.37 on 01/27 HTN- BP of 162/ 89 om 01/27 DM- controlled with Aspart sliding scale MSK pain from left shoulder, elbow and wrist secondary to fall- denies pain on 01/27 catheter hypokalemia- K on 3.5 on 01/27, up from 3.2 leukocytosis- resolved, WBC of 8.0 on 01/27 Plan: continue pain control continue antibiotics monitor labs Supportive care. PT & OT eating and drinking well according to patient DVT prophylaxis- enoxaparin DELMIS ESQUEDA DO 01/27/21 1354: Subjective Time Seen by a Provider: 08:37 Subjective/Events-last exam Pt seen and examined, seems a little confused today; but denied abd pain. Tolerating diet and having BMs. Review of Systems Pulmonary: No Dyspnea, No Cough Cardiovascular: No: Chest Pain, Palpitations Gastrointestinal: No: Nausea, Vomiting, Abdominal Pain, Diarrhea, Constipation Neurological: Confusion Objective Exam General Appearance: No Apparent Distress, Chronically ill, Obese HEENT: PERRL/EOMI, Moist Mucous Membranes Respiratory: Lungs Clear, Normal Breath Sounds, No Accessory Muscle Use, No Respiratory Distress Cardiovascular: No Murmur, Tachycardia Gastrointestinal: non tender, soft, no organomegaly Assessment/Plan Assessment/Plan Assessment/Plan Possible Diverticulitis - C-diff neg Sepsis - resolved, no source identified tachycardia- HR of 101 on 01/27 Chronic Kidney Disease- creatinine of 1.37 on 01/27 HTN- BP of 162/ 89 om 01/27 DM- controlled with Aspart sliding scale MSK pain from left shoulder, elbow and wrist secondary to fall- denies pain on 01/27 catheter hypokalemia- K on 3.5 on 01/27, up from 3.2 leukocytosis- resolved, WBC of 8.0 on 01/27 Plan: continue pain control, continue antibiotics, monitor labs, PT & OT, eating and drinking well according to patient, DVT prophylaxis- enoxaparin Will sign off and can reconsult as needed. Supervisory-Addendum Brief Verification & Attestation Participated in pt care: history, MDM, physical Personally performed: exam, history, MDM, supervision of care Care discussed with: Medical Student Procedures: n/a Verification and Attestation of Medical Student E/M Service A medical student performed and documented this service. I then reviewed and verified all information documented by the medical student and made modifications to such information, when appropriate. I personally performed a physical exam, medical decision making and then discussed any differences between the notes and made revisions as necessary to create one note. Delmis Esqueda , 01/27/21 , 13:54 ALEM JESUS MED STUDENT Jan 27, 2021 07:25 DELMIS ESQUEDA DO Jan 27, 2021 13:54
[2021-01-27] MEDS: ENOXAPARIN 40 MG/0.4 ML (LOVENOX) SYR SC SCH (09:23)
[2021-01-27] MEDS: GABAPENTIN 600 MG (NEURONTIN) TAB PO SCH ×2 (09:23→19:45)
[2021-01-27] MEDS: CEFDINIR 300 MG (OMNICEF) CAP PO SCH ×2 (09:24→19:45)
[2021-01-27] MEDS: metroNIDAZOLE 500 MG (FLAGYL) TAB PO SCH ×3 (09:27→19:48)
[2021-01-27] MEDS: morphine INJ 4 MG/ML 1 ML (VIAL/SYRINGE) IVP PRN (09:48)
--- NOTE | 2021-01-27 10:04 | Physical Therapy Daily Note ---
PT Daily Note-Current Subjective Patient agrees to PT. Mental Status Attachments: Fields Catheter, IV Transfers SCALE: Activities may be completed with or without assistive devices. 2-Yrayqnspss-enpyrgf completes the activity by him/herself with no assistance from a helper. 5-Set-up or Clean-up Assistance-helper sets up or cleans up; patient completes activity. [place] assists only prior to or following the activity. 4-Supervision or Touching Assistance-helper provides verbal cues and/or touching/steadying and/or contact guard assistance as patient completes activity. Assistance may be provided throughout the activity or intermittently. 3-Partial/Moderate Assistance-helper does LESS THAN HALF the effort. [place] lifts, holds or supports trunk or limbs, but provides less than half the effort. 2-Substantial/Maximal Assistance-helper does MORE THAN HALF the effort. [place] lifts or holds trunk or limbs and provides more than half the effort. 0-Jkxuaccha-coypnn does ALL the effort. Patient does none of the effort to complete the activity. Or, the assistance of 2 or more helpers is required for the patient to complete the activity. If activity was not attempted, code reason: 7-Patient Refused. 9-Not Applicable-not attempted and the patient did not perform the activity before the current illness, exacerbation or injury. 10-Not Attempted due to Environmental Limitations-(lack of equipment, weather restraints, etc.). 88-Not Attempted due to Medical Conditions or Safety Concerns. Lying to Sitting/Side of Bed(Q: 2 Sit to Stand (QC): 2 Chair/Bcc-fm-Ziiwx Xfer(QC): 2 Toilet Transfer (QC): 2 use of FWW and patient scooting feet with inability to clear for safe ambulation Assessment Patient incontinent BM requiring assist to cleanse and change by I&C TECH with PT address sit to stand, commode and recliner transfers/chair alarm activated for patient safety. PT Fdc Goals Fdc Goals PT Venetian Blind Mechanic Goals Time Frame: Feb 03, 2021 Roll Left & Right (QC): 6 Sit to Lying (QC): 6 Lying-Sitting on Side/Bed(QC): 6 Sit to Stand (QC): 4 Chair/Fur-ko-Epbpo Xfer(QC): 4 Toilet Transfer (QC): 4 Walk 10 feet (QC): 4 Walk 50ft with 2 Turns (QC): 4 Walk 150 ft (QC): 4 PT Plan Treatment/Plan Treatment Plan: Continue Plan of Care Treatment Plan: Bed Mobility, Education, Functional Activity Donell, Functional Strength, Gait, Safety, Therapeutic Exercise, Transfers Treatment Duration: Feb 03, 2021 Frequency: 6 times per week Estimated Hrs Per Day: .5 hour per day Patient and/or Family Agrees t: Yes Time/GCodes Time In: 907 Time Out: 923 Total Billed Treatment Time: 16 Total Billed Treatment 1 visit FA 16 min RAH JUDGE PT Jan 27, 2021 10:04
--- NOTE | 2021-01-27 11:41 | Progress Note - Hospitalist ---
Subjective HPI/CC On Admission Date Seen by Provider: Jan 27, 2021 Time Seen by Provider: 10:10 Roger Segura is an 80 year old male with PMH HTN, T2DM, obesity, who presented to the [facility] after a fall at home with wrist pain. He also reported abdominal pain. He is a poor historian but is able to answer some questions. He denies pain. He deneis fever. He appears uncomfortable. He was found to be septic with possible acute diverticulitis and was transferred to [facility] [address]. He had issues with hypotension while en route. Subjective/Events-last exam He is feeling better. He denies pain. He remains confused. Focused Exam Lactate Level 01/24/21 17:05: Lactic Acid Level 1.29 Time of Focused Exam: 06:30 Objective Exam Vital Signs Vital Signs Date Time Temp Pulse Resp B/P (MAP) Pulse Ox O2 Delivery O2 Flow Rate FiO2 01/27/21 11:07 37.2 102 22 140/70 (93) 91 Room Air 01/25/21 12:06 2.00 Capillary Refill : General Appearance: No Apparent Distress, Chronically ill, Obese Respiratory: Lungs Clear, Normal Breath Sounds, No Respiratory Distress Cardiovascular: Regular Rate, Rhythm, No Murmur Gastrointestinal: Normal Bowel Sounds, Non Tender, Soft Extremity: Normal Inspection, Non Tender, Pedal Edema Neurologic/Psychiatric: Alert, Disoriented, Motor Weakness Skin: Normal Color, Warm/Dry Results/Procedures Lab Laboratory Tests 01/27/21 05:12 Patient resulted labs reviewed. Imaging: Reviewed Imaging Report Assessment/Plan Assessment and Plan Assess & Plan/Chief Complaint Diverticulitis Continue oral antibiotics Debility PT/OT Planning for discharge to SNF Social work assisting T2DM with hyperglycemia Diabetic neuropathy Add Levemir Add Novolog with meals Sliding scale insulin Gabapentin Likely dementia CKD 3a Obesity Clinically significant, no acute management needs DVT prophylaxis: Lovenox Septic shock, resolved BRANDON on CKD, resolved Diagnosis/Problems Diagnosis/Problems (1) Acute diverticulitis Status: Acute (2) Debility Status: Acute (3) Dementia Status: Chronic (4) T2DM (type 2 diabetes mellitus) Status: Chronic Qualifiers: Diabetes mellitus ad terminal makeup operator insulin use: with ad terminal makeup operator use Diabetes mellitus complication status: with hyperglycemia Qualified Codes: E11.65 - Type 2 diabetes mellitus with hyperglycemia; Z79.4 - USP (current) use of insulin (5) Diabetes mellitus with stage 3a chronic kidney disease, with long-term current use of insulin Status: Chronic Qualifiers: Diabetes mellitus type: type 2 Qualified Codes: E11.22 - Type 2 diabetes mellitus with diabetic chronic kidney disease; N18.31 - Chronic kidney disease, stage 3a; Z79.4 - USP (current) use of insulin (6) Diabetic neuropathy Status: Chronic Qualifiers: Diabetes mellitus type: type 2 Diabetes mellitus complication detail: diabetic polyneuropathy Qualified Codes: E11.42 - Type 2 diabetes mellitus with diabetic polyneuropathy (7) Obesity Status: Chronic (8) Septic shock Status: Resolved Resolution Date/Time: 01/25/21 @ 18:12 NADIA LIRA MD Jan 27, 2021 11:41
[2021-01-28 03:38] VITALS: BP 120/71
[2021-01-28] MEDS: inSUlin ASPART (NovoLOG) 1 UNIT/0.01 ML (CHARGE PER UNIT) SC SCH ×7 (06:00→21:03)
[2021-01-28 07:59] VITALS: BP 141/85
[2021-01-28] MEDS: GABAPENTIN 600 MG (NEURONTIN) TAB PO SCH ×2 (08:38→19:33)
[2021-01-28] MEDS: metroNIDAZOLE 500 MG (FLAGYL) TAB PO SCH ×3 (08:38→19:33)
[2021-01-28] MEDS: CEFDINIR 300 MG (OMNICEF) CAP PO SCH ×2 (08:38→19:33)
[2021-01-28] MEDS: ENOXAPARIN 40 MG/0.4 ML (LOVENOX) SYR SC SCH (08:39)
[2021-01-28 11:11] VITALS: BP 149/85
[2021-01-28] MEDS ORDERED: ACETAMINOPHEN 500 MG TAB (TYLENOL) PO PRN (11:45)
[2021-01-28 16:25] VITALS: BP 138/82
--- NOTE | 2021-01-28 17:59 | Progress Note - Hospitalist ---
Subjective HPI/CC On Admission Date Seen by Provider: Jan 28, 2021 Time Seen by Provider: 11:35 Roger Segura is an 80 year old male with PMH HTN, T2DM, obesity, who presented to the [place] ER after a fall at home with wrist pain. He also reported abdominal pain. He is a poor historian but is able to answer some questions. He denies pain. He deneis fever. He appears uncomfortable. He was found to be septic with possible acute diverticulitis and was transferred to [facility] [address]. He had issues with hypotension while en route. Subjective/Events-last exam He reports left knee pain. He is not having any other complaints or concerns. Focused Exam Time of Focused Exam: 06:30 Objective Exam Vital Signs Vital Signs Date Time Temp Pulse Resp B/P (MAP) Pulse Ox O2 Delivery O2 Flow Rate FiO2 01/28/21 16:25 37.2 106 22 138/82 (100) 93 Room Air 01/25/21 12:06 2.00 Capillary Refill : General Appearance: No Apparent Distress, Obese Respiratory: Lungs Clear, Normal Breath Sounds, No Respiratory Distress Cardiovascular: Regular Rate, Rhythm, No Murmur Gastrointestinal: Normal Bowel Sounds, Non Tender, Soft Extremity: Normal Inspection, Pedal Edema Neurologic/Psychiatric: Alert, Disoriented, Motor Weakness Skin: Normal Color, Warm/Dry Results/Procedures Lab Patient resulted labs reviewed. Imaging: Reviewed Imaging Report Assessment/Plan Assessment and Plan Assess & Plan/Chief Complaint Diverticulitis Continue oral antibiotics Debility PT/OT Planning for discharge to SNF, likely tomorrow Social work assisting T2DM with hyperglycemia Diabetic neuropathy Continue Levemir Contiue Novolog with meals Sliding scale insulin Gabapentin Likely dementia CKD 3a Obesity Clinically significant, no acute management needs DVT prophylaxis: Lovenox Septic shock, resolved BRANDON on CKD, resolved Diagnosis/Problems Diagnosis/Problems (1) Acute diverticulitis Status: Acute (2) Debility Status: Acute (3) Dementia Status: Chronic (4) T2DM (type 2 diabetes mellitus) Status: Chronic Qualifiers: Diabetes mellitus skilled nursing insulin use: with terminal computer operator use Diabetes mellitus complication status: with hyperglycemia Qualified Codes: E11.65 - Type 2 diabetes mellitus with hyperglycemia; Z79.4 - oil heaterman (current) use of insulin (5) Diabetes mellitus with stage 3a chronic kidney disease, with long-term current use of insulin Status: Chronic Qualifiers: Diabetes mellitus type: type 2 Qualified Codes: E11.22 - Type 2 diabetes mellitus with diabetic chronic kidney disease; N18.31 - Chronic kidney disease, stage 3a; Z79.4 - oil heaterman (current) use of insulin (6) Diabetic neuropathy Status: Chronic Qualifiers: Diabetes mellitus type: type 2 Diabetes mellitus complication detail: diabetic polyneuropathy Qualified Codes: E11.42 - Type 2 diabetes mellitus with diabetic polyneuropathy (7) Obesity Status: Chronic (8) Septic shock Status: Resolved Resolution Date/Time: 01/25/21 @ 18:12 NADIA LIRA MD Jan 28, 2021 17:59
[2021-01-29 00:08] VITALS: BP 138/85
[2021-01-29] MEDS: inSUlin ASPART (NovoLOG) 1 UNIT/0.01 ML (CHARGE PER UNIT) SC SCH ×7 (05:15→21:15)
[2021-01-29 06:02] LABS: BASOPHILS # (AUTO) 0.1 10^3/uL (0.0-0.1); BASOPHILS % (AUTO) 1 % (0-10); EOSINOPHILS # (AUTO) 0.1 10^3/uL (0.0-0.3); EOSINOPHILS % (AUTO) 1 % (0-10); HEMATOCRIT 37 % (40-54); HEMOGLOBIN 11.5 g/dL (13.3-17.7); LYMPHOCYTES # (AUTO) 1.6 10^3/uL (1.0-4.0); LYMPHOCYTES % (AUTO) 16 % (12-44); MEAN CORPUSCULAR HEMOGLOBIN 26 pg (25-34); MEAN CORPUSCULAR HGB CONC 32 g/dL (32-36); MEAN CORPUSCULAR VOLUME 83 fL (80-99); MONOCYTES # (AUTO) 4.4 10^3/uL (0.0-1.0); MONOCYTES % (AUTO) 43 % (0-12); NEUTROPHILS # (AUTO) 3.4 10^3/uL (1.8-7.8); NEUTROPHILS % (AUTO) 33 % (42-75); PLATELET COUNT 44 10^3/uL (130-400); WHITE BLOOD COUNT 10.3 10^3/uL (4.3-11.0)
[2021-01-29 06:16] LABS: POTASSIUM 3.5 MMOL/L (3.6-5.0)
[2021-01-29 06:17] LABS: CALCIUM 8.9 MG/DL (8.5-10.1)
[2021-01-29 06:22] LABS: CREATININE SERUM 1.29 MG/DL (0.60-1.30)
[2021-01-29] MEDS: ENOXAPARIN 40 MG/0.4 ML (LOVENOX) SYR SC SCH (07:59)
[2021-01-29] MEDS: CEFDINIR 300 MG (OMNICEF) CAP PO SCH ×2 (07:59→21:31)
[2021-01-29] MEDS: GABAPENTIN 600 MG (NEURONTIN) TAB PO SCH ×2 (07:59→21:31)
[2021-01-29 08:00] VITALS: BP 126/78
[2021-01-29] MEDS: metroNIDAZOLE 500 MG (FLAGYL) TAB PO SCH ×3 (08:16→21:31)
--- NOTE | 2021-01-29 10:31 | Physical Therapy Daily Note ---
PT Daily Note-Current Subjective Patient agrees to PT. Mental Status Attachments: Fields Catheter Transfers SCALE: Activities may be completed with or without assistive devices. 0-Gjtebwnbdy-rzpqaxc completes the activity by him/herself with no assistance from a helper. 5-Set-up or Clean-up Assistance-helper sets up or cleans up; patient completes activity. [place] assists only prior to or following the activity. 4-Supervision or Touching Assistance-helper provides verbal cues and/or touching/steadying and/or contact guard assistance as patient completes activity. Assistance may be provided throughout the activity or intermittently. 3-Partial/Moderate Assistance-helper does LESS THAN HALF the effort. [place] lifts, holds or supports trunk or limbs, but provides less than half the effort. 2-Substantial/Maximal Assistance-helper does MORE THAN HALF the effort. [place] lifts or holds trunk or limbs and provides more than half the effort. 9-Tkfafglmn-khauao does ALL the effort. Patient does none of the effort to complete the activity. Or, the assistance of 2 or more helpers is required for the patient to complete the activity. If activity was not attempted, code reason: 7-Patient Refused. 9-Not Applicable-not attempted and the patient did not perform the activity before the current illness, exacerbation or injury. 10-Not Attempted due to Environmental Limitations-(lack of equipment, weather restraints, etc.). 88-Not Attempted due to Medical Conditions or Safety Concerns. Lying to Sitting/Side of Bed(Q: 2 Sit to Stand (QC): 3 Chair/Cvl-sd-Zinfu Xfer(QC): 3 Toilet Transfer (QC): 3 Patient able to perform sit to stand with minimal assist on this date/bed mobility to EOB patient was able to move bilateral LE's to EOB, however, unable to perform total task without max assist. Patient requires a lot of time to complete tasks and will stop during task. Gait Training Does the Patient Walk?: No and Walking Goal IS indicated Distance: 3-5 shuffle steps with FWW to transfer to commode and recliner Gait Assistive Device: FWW Exercises Seated Therapy Exercises: Ankle pumps, Long arc quads Assessment Patient continues to be incontinent BM during session and requires dependent assist to cleanse. Patient up in recliner with chair alarm activated. Increase activity as tolerated by patient. PT Merchandise Complaint Adjuster Goals Merchandise Complaint Adjuster Goals PT Half-Way Goals Time Frame: Feb 03, 2021 Roll Left & Right (QC): 6 Sit to Lying (QC): 6 Lying-Sitting on Side/Bed(QC): 6 Sit to Stand (QC): 4 Chair/Odu-ye-Yifhf Xfer(QC): 4 Toilet Transfer (QC): 4 Walk 10 feet (QC): 4 Walk 50ft with 2 Turns (QC): 4 Walk 150 ft (QC): 4 PT Plan Treatment/Plan Treatment Plan: Continue Plan of Care Treatment Plan: Bed Mobility, Education, Functional Activity Donell, Functional Strength, Gait, Safety, Therapeutic Exercise, Transfers Treatment Duration: Feb 03, 2021 Frequency: 6 times per week Estimated Hrs Per Day: .5 hour per day Patient and/or Family Agrees t: Yes Time/GCodes Time In: 839 Time Out: 903 Total Billed Treatment Time: 24 Total Billed Treatment 1 visit FA x 2 24 min RAH JUDGE PT Jan 29, 2021 10:31
--- NOTE | 2021-01-29 11:50 | Occupational Ther Daily Note ---
OT Current Status-Daily Note Subjective Continues to report pain in L wrist. RN verbalizes sprained wrist. Appearance Left supine, all needs within reach, RN informed. Mental Status/Objective Patient Orientation: Person, Confused Attachments: Fields Catheter, IV ADL-Treatment Therapy Code Descriptions/Definitions Functional [place] Measure: 0=Not Assessed/NA 4=Minimal Assistance 1=Total Assistance 5=Supervision or Setup 2=Maximal Assistance 6=Modified [place] 3=Moderate Assistance 7=Complete IndependenceSCALE: Activities may be completed with or without assistive devices. 8-Mlphttzils-nwyswnk completes the activity by him/herself with no assistance from a helper. 5-Set-up or Clean-up Assistance-helper sets up or cleans up; patient completes activity. [place] assists only prior to or following the activity. 4-Supervision or Touching Assistance-helper provides verbal cues and/or touching/steadying and/or contact guard assistance as patient completes activity. Assistance may be provided throughout the activity or intermittently. 3-Partial/Moderate Assistance-helper does LESS THAN HALF the effort. [place] lifts, holds or supports trunk or limbs, but provides less than half the effort. 2-Substantial/Maximal Assistance-helper does MORE THAN HALF the effort. [place] lifts or holds trunk or limbs and provides more than half the effort. 3-Ahhgevboq-khfdbq does ALL the effort. Patient does none of the effort to complete the activity. Or, the assistance of 2 or more helpers is required for the patient to complete the activity. If activity was not attempted, code reason: 7-Patient Refused. 9-Not Applicable-not attempted and the patient did not perform the activity before the current illness, exacerbation or injury. 10-Not Attempted due to Environmental Limitations-(lack of equipment, weather restraints, etc.). 88-Not Attempted due to Medical Conditions or Safety Concerns. Other Treatment Pt sleeping at OT arrival. Easy to rouse, but limited participation. Reports fatigue and nausea. Pt completes all UE exercises with eyes closed and only opens for brief second when OT requests for him to open eyes. Able to follow directions with tactile cues. BUE: shoulder flexion-AAROM, elbow-distally- AROM; 8 x1 in all planes (except L wrist). Education OT Patient Education: Correct positioning, Exercise program, Progress toward Goal/Update tx plan, Purpose of tx/functional activities Teaching Recipient: Patient Teaching Methods: Discussion Response to Teaching: Reinforcement Needed OT Package Line Operator Goals Usp Goals Time Frame: Feb 17, 2021 Eating (QC): 5 Oral Hygiene (QC): 4 Toileting Hygiene (QC): 4 Lower Body Dressing (QC): 4 On/Off Footwear (QC): 4 1=Demonstrate adherence to instructed precautions during ADL tasks. 2=Patient will verbalize/demonstrate understanding of assistive devices/modifications for ADL. 3=Patient will improve strength/tolerance for activity to enable patient to perform ADL's. OT Education/Plan Problem List/Assessment Assessment: Decreased Activ Tolerance, Decreased Safety Aware, Decreased UE Strength, Impaired Cognition, Impaired Funct Balance, Impaired Self-Care Skills, Restricted Funct UE ROM Discharge Recommendations Plan/Recommendations: Continue POC Therapy Discharge Recommendati: 24 Hour Supervision, Bath Aide, Post Acute OT Treatment Plan/Plan of Care Treatment,Training & Education: Yes Patient would benefit from OT for education, treatment and training to promote independence in ADL's, mobility, safety and/or upper extremity function for ADL's. Plan of Care: ADL Retraining, Caregiver Training, Functional Mobility, Group Exercise/Act as Ind, UE Funct Exercise/Act Treatment Duration: Feb 17, 2021 Frequency: 5 times per week Estimated Hrs Per Day: .25 hour per day Agreement: Yes Rehab Potential: Fair Time/GCodes Start Time: 11:03 Stop Time: 11:15 Total Time Billed (hr/min): 12 Billed Treatment Time 1 visit EX Alison Donaldson OT Jan 29, 2021 11:50
[2021-01-29] MEDS ORDERED: INSU100I10 SQ (12:07)
[2021-01-29] MEDS ORDERED: METR-145 PO (12:07)
[2021-01-29] MEDS ORDERED: INSU100I14 SQ (12:07)
[2021-01-29] MEDS ORDERED: CEFD300C3 PO (12:07)
--- NOTE | 2021-01-29 12:14 | Discharge Summary ---
Discharge Summary Reconcile Patient Problems Problems Reviewed?: Yes Hospital Course Hospital Course Date of Admission: Jan 23, 2021 at 20:03 Admission Diagnosis: Septic shock, acute diverticulitis Family Physician/Provider: Primitivo Clifton DO Date of Discharge: 01/29/21 Discharge Diagnosis: Septic shock, acute diverticulitis Hospital Course: Roger Segura is an 80 year old male with PMH T2DM, diabetic neuropathy, dementia, CKD3, admitted with septic shock and acute diverticulitis. He p resented to [place] and was transferred for admission. He was hypotensive during transfer. He was given IV fluids and his pressures improved. He was treated with IV antibiotics for diverticulitis diagnosed by CT at outside facility. His symptoms improved. He was transitioned to oral antibiotics. His course was complicated by debility. He was discharged to a [facility] in [place] for ongoing therapy needs. He was discharged in stable condition. Labs and Pending Lab Test: Laboratory Tests 01/28/21 16:28: Glucometer 156H 01/28/21 20:51: Glucometer 221H 01/29/21 05:14: Glucometer 139H 01/29/21 05:40: White Blood Count 10.3, Red Blood Count 4.38, Hemoglobin 11.5L, Hematocrit 37L, Mean Corpuscular Volume 83, Mean Corpuscular Hemoglobin 26, Mean Corpuscular Hemoglobin Concent 32, Red Cell Distribution Width 15.0H, Platelet Count 44L, Mean Platelet Volume , Immature Granulocyte % (Auto) 8, Neutrophils (%) (Auto) 33L, Lymphocytes (%) (Auto) 16, Monocytes (%) (Auto) 43H, Eosinophils (%) (Auto) 1, Basophils (%) (Auto) 1, Neutrophils # (Auto) 3.4, Lymphocytes # (Auto) 1.6, Monocytes # (Auto) 4.4H, Eosinophils # (Auto) 0.1, Basophils # (Auto) 0.1, Immature Granulocyte # (Auto) 0.8H, Percent Immature Platelet Fraction 19.1H, Sodium Level 140, Potassium Level 3.5L, Chloride Level 105, Carbon Dioxide Level 23, Anion Gap 12, Blood Urea Nitrogen 15, Creatinine 1.29, Estimat Glomerular Filtration Rate 53, BUN/Creatinine Ratio 12, Glucose Level 153H, Calcium Level 8.9 01/29/21 10:25: Glucometer 143H Microbiology 01/24/21 Urine Culture - Final, Complete NO GROWTH 01/24/21 C. difficile GDH Antigen & Toxins - Final, Complete 01/23/21 MRSA Screen - Final, Complete MRSA not isolated Home Meds Active Novolog Flexpen (Insulin Aspart) 300 Units/3 Ml Solution 5 Units SQ AC 30 Days Lantus Solostar (Insulin Glargine,Hum.rec.anlog) 100 Unit/1 Ml Insuln.pen 20 Unit SQ HS 30 Days Metronidazole 500 Mg Tablet 500 Mg PO TID 5 Days Cefdinir 300 Mg Capsule 300 Mg PO BID 5 Days Reported Vitamin B-12 5,000 Mcg Tab Sl (Cyanocobalamin/Cobamamide) 1 Each Tab.subl 1 Each SL DAILY Aspirin EC (Aspirin) 81 Mg Tablet. 81 Mg PO DAILY Sertraline HCl 50 Mg Tablet 50 Mg PO DAILY LAST FILLED 08-21-2020 #90/90 DAY SUPPLY Donepezil HCl 10 Mg Tablet 10 Mg PO BID LAST FILLED 08-31-2020 #120/60 DAY SUPPLY Neurontin (Gabapentin) 300 Mg Capsule 600 Mg PO TID TAKES 2 (300MG) CAPS Omeprazole 20 Mg Capsule. 20 Mg PO DAILY Atorvastatin Calcium 20 Mg Tablet 20 Mg PO DAILY Carvedilol 6.25 Mg Tablet 3.125 Mg PO BID TAKES OF A 6.25MG TAB Farxiga (Dapagliflozin Propanediol) 5 Mg Tablet 5 Mg PO DAILY Allopurinol 100 Mg Tablet 100 Mg PO DAILY Myrbetriq (Mirabegron) 50 Mg Tab.er.24h 50 Mg PO DAILY Relion Novolin 70-30 Vial (Insulin NPH Hum/Reg Insulin Hm) 100 Unit/1 Ml Vial 55 Unit SQ 1800 BEFORE MEAL Relion Novolin 70-30 Vial (Insulin NPH Hum/Reg Insulin Hm) 100 Unit/1 Ml Vial 100 Units SC DAILY BEFORE MEAL Instructions to Patient/Family Assessment/Instructions Take medications as prescribed. Follow up on next [facility] rounds. Return with worsening pain, fevers, or if you feel like you are getting worse. Follow Up Appt.: next [facility] rounds Skilled NF Admit to: Certification (SNF) I certify that SNF services are required to be given on an inpatient basis because of the above named patient's need for penitentiary care on a c ontinuing basis for the conditions(s) for which he/she was receiving inpatient hospital services prior to his/her transfer to the SNF. Halfway Facility Order: Nursing Services, Motor Vehicle Compliance Analyst-Evaluate & Treat, Physical Therapy-Evaluate & Treat Oxygen Delivery Method: Room Air Discharge Diet: ADA Diet Daily Activity as Tolerated: Yes Resuscitation Status: Full Code Nadia Lira Jan 29, 2021 12:09 Discharge Physical Exam General: Alert, Cooperative, No Acute Distress HEENT: Atraumatic, EOMI, Mucous Memb Moist/[place] Lungs: Clear to Auscultation, Normal Air Movement Heart: Regular Rate, Normal S1, Normal S2, No Murmurs Abdomen: Normal Bowel Sounds, Soft, No Tenderness Extremities: No Edema, No Tenderness/Swelling Skin: No Rashes, No Significant Lesion Neuro: Normal Tone, Other (weakness) Psych/Mental Status: Mental Status NL, Mood NL NADIA LIRA MD Jan 29, 2021 12:14
[2021-01-29 16:00] VITALS: BP 141/67
[2021-01-30 00:33] VITALS: BP 135/75
[2021-01-30] MEDS: inSUlin ASPART (NovoLOG) 1 UNIT/0.01 ML (CHARGE PER UNIT) SC SCH ×7 (05:50→21:01)
[2021-01-30 08:25] VITALS: BP 148/67
[2021-01-30] MEDS: CEFDINIR 300 MG (OMNICEF) CAP PO SCH ×2 (09:30→21:26)
[2021-01-30] MEDS: metroNIDAZOLE 500 MG (FLAGYL) TAB PO SCH ×3 (09:30→21:26)
[2021-01-30] MEDS: GABAPENTIN 600 MG (NEURONTIN) TAB PO SCH ×2 (09:30→21:26)
--- NOTE | 2021-01-30 10:03 | Physical Therapy Daily Note ---
PT Daily Note-Current Subjective Patient in bed and agrees to PT and up to recliner. Mental Status Patient Orientation: Person Attachments: Fields Catheter Transfers SCALE: Activities may be completed with or without assistive devices. 2-Qponwnvlzr-tgycgwy completes the activity by him/herself with no assistance from a helper. 5-Set-up or Clean-up Assistance-helper sets up or cleans up; patient completes activity. [place] assists only prior to or following the activity. 4-Supervision or Touching Assistance-helper provides verbal cues and/or touching/steadying and/or contact guard assistance as patient completes activity. Assistance may be provided throughout the activity or intermittently. 3-Partial/Moderate Assistance-helper does LESS THAN HALF the effort. [place] lifts, holds or supports trunk or limbs, but provides less than half the effort. 2-Substantial/Maximal Assistance-helper does MORE THAN HALF the effort. [place] lifts or holds trunk or limbs and provides more than half the effort. 3-Ubnqmgecz-jhufff does ALL the effort. Patient does none of the effort to complete the activity. Or, the assistance of 2 or more helpers is required for the patient to complete the activity. If activity was not attempted, code reason: 7-Patient Refused. 9-Not Applicable-not attempted and the patient did not perform the activity before the current illness, exacerbation or injury. 10-Not Attempted due to Environmental Limitations-(lack of equipment, weather restraints, etc.). 88-Not Attempted due to Medical Conditions or Safety Concerns. Lying to Sitting/Side of Bed(Q: 2 Sit to Stand (QC): 3 Chair/Jyk-iw-Wdfbj Xfer(QC): 3 Toilet Transfer (QC): 3 Gait Training Distance: 5 side steps x 2 Gait Assistive Device: FWW severe trunk flexed posture with shuffle sequence with no foot clearance Assessment Patient yells in pain during entire session. Did not rate or locate region. Nursing notified. PT Prison Goals Saddle Mechanic Goals PT Prison Goals Time Frame: Feb 03, 2021 Roll Left & Right (QC): 6 Sit to Lying (QC): 6 Lying-Sitting on Side/Bed(QC): 6 Sit to Stand (QC): 4 Chair/Hww-fy-Kavta Xfer(QC): 4 Toilet Transfer (QC): 4 Walk 10 feet (QC): 4 Walk 50ft with 2 Turns (QC): 4 Walk 150 ft (QC): 4 PT Plan Treatment/Plan Treatment Plan: Continue Plan of Care Treatment Plan: Bed Mobility, Education, Functional Activity Donell, Functional Strength, Gait, Safety, Therapeutic Exercise, Transfers Treatment Duration: Feb 03, 2021 Frequency: 6 times per week Estimated Hrs Per Day: .5 hour per day Patient and/or Family Agrees t: Yes Time/GCodes Time In: 850 Time Out: 900 Total Billed Treatment Time: 10 Total Billed Treatment 1 visit FA 10 min RAH JUDGE PT Jan 30, 2021 10:03
[2021-01-30] MEDS: ENOXAPARIN 40 MG/0.4 ML (LOVENOX) SYR SC SCH (10:48)
--- NOTE | 2021-01-30 11:26 | Occupational Ther Daily Note ---
OT Current Status-Daily Note Subjective C/o pain in buttocks, no number given. Appearance Returned to supine, all needs within reach. Mental Status/Objective Patient Orientation: Person, Confused Attachments: Fields Catheter, IV ADL-Treatment Therapy Code Descriptions/Definitions Functional [place] Measure: 0=Not Assessed/NA 4=Minimal Assistance 1=Total Assistance 5=Supervision or Setup 2=Maximal Assistance 6=Modified [place] 3=Moderate Assistance 7=Complete IndependenceSCALE: Activities may be completed with or without assistive devices. 9-Rzxkwasvyp-bmwlcwr completes the activity by him/herself with no assistance from a helper. 5-Set-up or Clean-up Assistance-helper sets up or cleans up; patient completes activity. [place] assists only prior to or following the activity. 4-Supervision or Touching Assistance-helper provides verbal cues and/or touching/steadying and/or contact guard assistance as patient completes activity. Assistance may be provided throughout the activity or intermittently. 3-Partial/Moderate Assistance-helper does LESS THAN HALF the effort. [place] lifts, holds or supports trunk or limbs, but provides less than half the effort. 2-Substantial/Maximal Assistance-helper does MORE THAN HALF the effort. [place] lifts or holds trunk or limbs and provides more than half the effort. 5-Aiqazujph-uqbgpp does ALL the effort. Patient does none of the effort to complete the activity. Or, the assistance of 2 or more helpers is required for the patient to complete the activity. If activity was not attempted, code reason: 7-Patient Refused. 9-Not Applicable-not attempted and the patient did not perform the activity before the current illness, exacerbation or injury. 10-Not Attempted due to Environmental Limitations-(lack of equipment, weather restraints, etc.). 88-Not Attempted due to Medical Conditions or Safety Concerns. Toileting Hygiene (QC): 1 Pt reclined in bed at OT arrival. Reports pain in buttocks, education on positioning and sidelying for pressure relief. Pt willing to try. Able to roll better to Left as RUE can assist with pulling self towards bed rail. Upon rolling, OT notices poor magdalena hygiene. Dependent to clean. Pt declines laying on side and returns to supine. Mod a to scoot to HOB with cues needed for sequencing. Pt crying out in pain with all movement. Education OT Patient Education: Correct positioning, Disease process, Progress toward Goal/Update tx plan, Purpose of tx/functional activities, Transfer techniques Teaching Recipient: Patient Teaching Methods: Discussion Response to Teaching: Reinforcement Needed OT Ensemble Member Goals [facility] Goals Time Frame: Feb 17, 2021 Eating (QC): 5 Oral Hygiene (QC): 4 Toileting Hygiene (QC): 4 Lower Body Dressing (QC): 4 On/Off Footwear (QC): 4 1=Demonstrate adherence to instructed precautions during ADL tasks. 2=Patient will verbalize/demonstrate understanding of assistive devices/modifications for ADL. 3=Patient will improve strength/tolerance for activity to enable patient to perform ADL's. OT Education/Plan Problem List/Assessment Assessment: Decreased Activ Tolerance, Decreased Safety Aware, Decreased UE Strength, Impaired Bed Mobility, Impaired Funct Balance, Impaired I ADL's, Impaired Self-Care Skills, Restricted Funct UE ROM Discharge Recommendations Plan/Recommendations: Continue POC Therapy Discharge Recommendati: Post Acute OT Treatment Plan/Plan of Care Treatment,Training & Education: Yes Patient would benefit from OT for education, treatment and training to promote independence in ADL's, mobility, safety and/or upper extremity function for ADL's. Plan of Care: ADL Retraining, Caregiver Training, Functional Mobility, Group Exercise/Act as Ind, UE Funct Exercise/Act Treatment Duration: Feb 17, 2021 Frequency: 5 times per week Estimated Hrs Per Day: .25 hour per day Agreement: Yes Rehab Potential: Fair Time/GCodes Start Time: 10:30 Stop Time: 10:42 Total Time Billed (hr/min): 12 Billed Treatment Time 1 visit ADL Alison Donaldson OT Jan 30, 2021 11:26
[2021-01-30 16:08] VITALS: BP 127/75
[2021-01-31] VITALS: BP 138/83
[2021-01-31] MEDS: inSUlin ASPART (NovoLOG) 1 UNIT/0.01 ML (CHARGE PER UNIT) SC SCH ×7 (07:14→21:12)
[2021-01-31 08:00] VITALS: BP 137/83
[2021-01-31] MEDS: metroNIDAZOLE 500 MG (FLAGYL) TAB PO SCH (08:55)
[2021-01-31] MEDS: ENOXAPARIN 40 MG/0.4 ML (LOVENOX) SYR SC SCH (08:55)
[2021-01-31] MEDS: GABAPENTIN 600 MG (NEURONTIN) TAB PO SCH ×2 (08:55→21:02)
--- NOTE | 2021-01-31 09:51 | Physical Therapy Daily Note ---
PT Daily Note-Current Subjective Patient in bed pre tx, agrees to PT, has pain in his left knee and wrist, unrated. Appearance Patient in bed post tx with nurse call, phone, tray, all needs met. Mental Status Patient Orientation: Person, Place, Situation Attachments: Fields Catheter Transfers SCALE: Activities may be completed with or without assistive devices. 3-Pxlrflbceb-adxmets completes the activity by him/herself with no assistance from a helper. 5-Set-up or Clean-up Assistance-helper sets up or cleans up; patient completes activity. [place] assists only prior to or following the activity. 4-Supervision or Touching Assistance-helper provides verbal cues and/or touching/steadying and/or contact guard assistance as patient completes activity. Assistance may be provided throughout the activity or intermittently. 3-Partial/Moderate Assistance-helper does LESS THAN HALF the effort. [place] lifts, holds or supports trunk or limbs, but provides less than half the effort. 2-Substantial/Maximal Assistance-helper does MORE THAN HALF the effort. [place] lifts or holds trunk or limbs and provides more than half the effort. 9-Kbhhzmqyq-upkkbi does ALL the effort. Patient does none of the effort to complete the activity. Or, the assistance of 2 or more helpers is required for the patient to complete the activity. If activity was not attempted, code reason: 7-Patient Refused. 9-Not Applicable-not attempted and the patient did not perform the activity before the current illness, exacerbation or injury. 10-Not Attempted due to Environmental Limitations-(lack of equipment, weather restraints, etc.). 88-Not Attempted due to Medical Conditions or Safety Concerns. Roll Left & Right (QC): 2 Sit to Lying (QC): 2 Lying to Sitting/Side of Bed(Q: 2 Patient sits to the side of the bed with max assist, very slow moving and has pain in right knee, cant push or pull with left hand because of left wrist pain. Attempt to stand x3 but he cannot due to pain. Encouraged patient to work through the pain and use non-painful limbs more but he says he can't. Encourage patient to try again but he says "don't argue with me, I'm laying back down". After laying down he scoots up in bed with cues for positioning. Treatments bed mobility, sitting, attempted standing Assessment Current Status: Poor Progress poor motivation PT Special Agent Group Insurance Goals Special Agent Group Insurance Goals PT [facility] Goals Time Frame: Feb 03, 2021 Roll Left & Right (QC): 6 Sit to Lying (QC): 6 Lying-Sitting on Side/Bed(QC): 6 Sit to Stand (QC): 4 Chair/Peh-ll-Luqyi Xfer(QC): 4 Toilet Transfer (QC): 4 Walk 10 feet (QC): 4 Walk 50ft with 2 Turns (QC): 4 Walk 150 ft (QC): 4 PT Plan Problem List Problem List: Activity Tolerance, Functional Strength, Safety, Balance, Gait, Transfer, Bed Mobility, ROM Treatment/Plan Treatment Plan: Continue Plan of Care Treatment Plan: Bed Mobility, Education, Functional Activity Donell, Functional Strength, Gait, Safety, Therapeutic Exercise, Transfers Treatment Duration: Feb 03, 2021 Frequency: 6 times per week Estimated Hrs Per Day: .5 hour per day Patient and/or Family Agrees t: Yes Safety Risks/Education Patient Education: Correct Positioning, Safety Issues Teaching Recipient: Patient Teaching Methods: Demonstration, Discussion Response to Teaching: Reinforcement Needed Time/GCodes Time In: 03 Time Out: 0916 Total Billed Treatment Time: 13 Total Billed Treatment 1 visit FA SILVER CERDA PT Jan 31, 2021 09:51
--- NOTE | 2021-01-31 13:31 | Occupational Ther Daily Note ---
OT Current Status-Daily Note Subjective Pt sleeping at OT arrival, shakes head to answers but does not verbalize responses or open eyes. Appearance Left supine in bed, all needs within reach, in room. Mental Status/Objective Patient Orientation: Person, Confused ADL-Treatment Therapy Code Descriptions/Definitions Functional [place] Measure: 0=Not Assessed/NA 4=Minimal Assistance 1=Total Assistance 5=Supervision or Setup 2=Maximal Assistance 6=Modified [place] 3=Moderate Assistance 7=Complete IndependenceSCALE: Activities may be completed with or without assistive devices. 1-Dmxzslndgc-eshvhvy completes the activity by him/herself with no assistance from a helper. 5-Set-up or Clean-up Assistance-helper sets up or cleans up; patient completes activity. [place] assists only prior to or following the activity. 4-Supervision or Touching Assistance-helper provides verbal cues and/or touching/steadying and/or contact guard assistance as patient completes activity. Assistance may be provided throughout the activity or intermittently. 3-Partial/Moderate Assistance-helper does LESS THAN HALF the effort. [place] lifts, holds or supports trunk or limbs, but provides less than half the effort. 2-Substantial/Maximal Assistance-helper does MORE THAN HALF the effort. [place] lifts or holds trunk or limbs and provides more than half the effort. 9-Yzbwspfyi-briagm does ALL the effort. Patient does none of the effort to complete the activity. Or, the assistance of 2 or more helpers is required for the patient to complete the activity. If activity was not attempted, code reason: 7-Patient Refused. 9-Not Applicable-not attempted and the patient did not perform the activity before the current illness, exacerbation or injury. 10-Not Attempted due to Environmental Limitations-(lack of equipment, weather restraints, etc.). 88-Not Attempted due to Medical Conditions or Safety Concerns. Other Treatment Pt sleeping at OT arrival. Easy to wake. Pt shakes head yes/no but does not verbalize except screaming out in pain when OT touches LUE. Pt keeps eyes closed and only opens for brief second with OT requests. Initially, goal of session was to improve strength and endurance needed for adls and transfers. Activity terminated early due to poor participation and pt falling asleep. Pt completed LUE shoulder/elbow exercises only. Education OT Patient Education: Exercise program, Progress toward Goal/Update tx plan, Purpose of tx/functional activities Teaching Recipient: Patient Teaching Methods: Discussion Response to Teaching: Reinforcement Needed OT Assessment Services Manager Goals Assessment Services Manager Goals Time Frame: Feb 17, 2021 Eating (QC): 5 Oral Hygiene (QC): 4 Toileting Hygiene (QC): 4 Lower Body Dressing (QC): 4 On/Off Footwear (QC): 4 1=Demonstrate adherence to instructed precautions during ADL tasks. 2=Patient will verbalize/demonstrate understanding of assistive devices/modifications for ADL. 3=Patient will improve strength/tolerance for activity to enable patient to perform ADL's. OT Education/Plan Problem List/Assessment Assessment: Decreased Activ Tolerance, Decreased Safety Aware, Decreased UE Strength, Dependent Transfers, Impaired Bed Mobility, Impaired Funct Balance, Impaired I ADL's, Impaired Self-Care Skills, Restricted Funct UE ROM Discharge Recommendations Plan/Recommendations: Continue POC Therapy Discharge Recommendati: 24 Hour Supervision, Post Acute OT Treatment Plan/Plan of Care Treatment,Training & Education: Yes Patient would benefit from OT for education, treatment and training to promote independence in ADL's, mobility, safety and/or upper extremity function for ADL's. Plan of Care: ADL Retraining, Caregiver Training, Functional Mobility, Group Ex ercise/Act as Ind, UE Funct Exercise/Act Treatment Duration: Feb 17, 2021 Frequency: 5 times per week Estimated Hrs Per Day: .25 hour per day Agreement: Yes Rehab Potential: Fair Time/GCodes Start Time: 13:12 Stop Time: 13:20 Total Time Billed (hr/min): 8 Billed Treatment Time 1 visit EX Alison Donaldson OT Jan 31, 2021 13:31
[2021-01-31 16:00] VITALS: BP 141/85
[2021-01-31] MEDS ORDERED: CARV6.252 PO (17:28)
[2021-01-31] MEDS ORDERED: INSU100I10 SQ (17:28)
[2021-01-31] MEDS ORDERED: DONE10TA41 PO (17:28)
[2021-01-31] MEDS ORDERED: GABA300C PO (17:28)
[2021-01-31] MEDS ORDERED: INSU100I14 SQ (17:28)
[2021-01-31] MEDS ORDERED: ATOR20TA66 PO (17:28)
[2021-01-31] MEDS ORDERED: ALLO100T PO (17:28)
[2021-01-31] MEDS ORDERED: SERT-413 PO (17:28)
[2021-01-31] MEDS ORDERED: DAPA5TAB PO (17:28)
[2021-01-31] MEDS ORDERED: ASPI-1238 PO (17:28)
[2021-01-31] MEDS ORDERED: MIRA50TA PO (17:28)
[2021-01-31] MEDS ORDERED: OMEP20CA18 PO (17:28)
[2021-02-01 00:32] VITALS: BP 133/84
[2021-02-01] MEDS: inSUlin ASPART (NovoLOG) 1 UNIT/0.01 ML (CHARGE PER UNIT) SC SCH ×5 (06:00→12:22)
[2021-02-01 07:16] VITALS: BP 148/81
[2021-02-01] MEDS ORDERED: METO50TA7 PO (07:50)
[2021-02-01] MEDS: GABAPENTIN 600 MG (NEURONTIN) TAB PO SCH (08:10)
[2021-02-01] MEDS: ENOXAPARIN 40 MG/0.4 ML (LOVENOX) SYR SC SCH (08:10)
[2021-02-01] MEDS ORDERED: meTOproloL SUCCINATE 50 MG (TOPROL XL) TAB PO SCH (09:00)
--- NOTE | 2021-02-01 09:49 | Physical Therapy Daily Note ---
PT Daily Note-Current Subjective pain right hip and wrist 10/10. Pt agrees to try out of bed. He notes he was out of bed to the chair early this morning. he was not able to eat due to nausea Transfers SCALE: Activities may be completed with or without assistive devices. 5-Aqskbpsutd-dbcexin completes the activity by him/herself with no assistance from a helper. 5-Set-up or Clean-up Assistance-helper sets up or cleans up; patient completes activity. [place] assists only prior to or following the activity. 4-Supervision or Touching Assistance-helper provides verbal cues and/or touching/steadying and/or contact guard assistance as patient completes activity. Assistance may be provided throughout the activity or intermittently. 3-Partial/Moderate Assistance-helper does LESS THAN HALF the effort. [place] li fts, holds or supports trunk or limbs, but provides less than half the effort. 2-Substantial/Maximal Assistance-helper does MORE THAN HALF the effort. [place] lifts or holds trunk or limbs and provides more than half the effort. 1-Ksjcjhret-oprfqs does ALL the effort. Patient does none of the effort to complete the activity. Or, the assistance of 2 or more helpers is required for the patient to complete the activity. If activity was not attempted, code reason: 7-Patient Refused. 9-Not Applicable-not attempted and the patient did not perform the activity before the current illness, exacerbation or injury. 10-Not Attempted due to Environmental Limitations-(lack of equipment, weather restraints, etc.). 88-Not Attempted due to Medical Conditions or Safety Concerns. Roll Left & Right (QC): 4 Sit to Lying (QC): 4 Lying to Sitting/Side of Bed(Q: 4 Assessment Current Status: Poor Progress Pt able to roll and come to sitting on the right side of the bed with verbal cuing and Min assist to lift the trunk. Pt yelled in pain during the entire episode. Sat bedside for 5 minutes before requesting an urgent return to bed due to dizziness and pain. Min assist to return to supine and position in sidelying. PT [facility]dc Goals [facility]dc Goals PT Manager Pricing Goals Time Frame: Feb 03, 2021 Roll Left & Right (QC): 6 Sit to Lying (QC): 6 Lying-Sitting on Side/Bed(QC): 6 Sit to Stand (QC): 4 Chair/Dqi-kp-Qrpce Xfer(QC): 4 Toilet Transfer (QC): 4 Walk 10 feet (QC): 4 Walk 50ft with 2 Turns (QC): 4 Walk 150 ft (QC): 4 PT Plan Treatment/Plan Treatment Plan: Continue Plan of Care Treatment Plan: Bed Mobility, Education, Functional Activity Donell, Functional Strength, Gait, Safety, Therapeutic Exercise, Transfers Treatment Duration: Feb 03, 2021 Frequency: 6 times per week Estimated Hrs Per Day: .5 hour per day Patient and/or Family Agrees t: Yes Time/GCodes Time In: 900 Time Out: 916 Total Billed Treatment Time: 16 Total Billed Treatment visit, FA x 16 min DEJA MARTE PT Feb 01, 2021 09:49
== END 2021-02-01 12:22 | DRG 871 ==
LOC: ICU 20:03 → 4TH 01-25 12:09
PROVIDERS: ADMIT Internal Medicine; ATTEND Internal Medicine
DX: A41.9 Sepsis, unspecified organism (principal); R65.21 Severe sepsis with septic shock; K57.92 Diverticulitis of intestine, part unspecified, without perforation or abscess without bleeding; N39.0 Urinary tract infection, site not specified; D69.6 Thrombocytopenia, unspecified; R41.0 Disorientation, unspecified; E11.22 Type 2 diabetes mellitus with diabetic chronic kidney disease; I12.9 Hypertensive chronic kidney disease with stage 1 through stage 4 chronic kidney disease, or unspecified chronic kidney disease; E78.5 Hyperlipidemia, unspecified; K21.9 Gastro-esophageal reflux disease without esophagitis; E66.9 Obesity, unspecified; Z79.4 Long term (current) use of insulin; Z87.891 Personal history of nicotine dependence; Z68.30 Body mass index [BMI] 30.0-30.9, adult; K57.30 Diverticulosis of large intestine without perforation or abscess without bleeding; E11.65 Type 2 diabetes mellitus with hyperglycemia; R53.81 Other malaise; N18.31 Chronic kidney disease, stage 3a; F03.90 Unspecified dementia, unspecified severity, without behavioral disturbance, psychotic disturbance, mood disturbance, and anxiety; E11.42 Type 2 diabetes mellitus with diabetic polyneuropathy; Z79.82 Long term (current) use of aspirin; Z79.899 Other long term (current) drug therapy; I95.9 Hypotension, unspecified; M25.512 Pain in left shoulder; M25.522 Pain in left elbow; M25.532 Pain in left wrist; W18.30XA Fall on same level, unspecified, initial encounter; Z96.642 Presence of left artificial hip joint; J44.9 Chronic obstructive pulmonary disease, unspecified; M19.90 Unspecified osteoarthritis, unspecified site; E87.6 Hypokalemia
CPT/HCPCS: 36415; 71045; 73030; 73060; 74150; 80048; 80053; 81000; 82947; 83605; 83735; 84100; 84145; 85007; 85025; 85027; 85045; 85055; 85379; 85610; 87081; 87088; 87324; 87449